=== PATIENT | male | born 1935 | race Two or more races ===

== ENCOUNTER 2020-08-29 22:23 | Inpatient (IN) | payer MEDICARE, OTHER ==
[~2020-08-29] VITALS: Ht 167.6 cm; Wt 48.5 kg
[2020-08-29 22:30] VITALS: BP 123/82
[2020-08-29] MEDS ORDERED: Enoxaparin 100mg Inj SUBQ ONE (22:30)
[2020-08-29] MEDS ORDERED: Azithromycin 500 MG in NS 275 ML IVPB ONE (22:30)
[2020-08-29] MEDS ORDERED: cefTRIAXone 1 GM in NS 55 ML IV ONE (22:30)
[2020-08-29] MEDS ORDERED: dexAMETHasone 10mg/ml Inj IV ONE (22:30)
--- NOTE | 2020-08-29 22:30 | NUR ---
ED Nurse Note: Patient brought into ED by RA Troy from [facility] c/o Shortness of Breathe, per EMS patient was satting at 75% on room air prior to arrival. at arrival patient currently satting at 90% on 15 liters non rebreather, patient is hot to touch, rectal temp of 102.3, patient presents with no skin break down however presents with redness on sacral area. patient was cleaned and placed on monitor. IV started on right ac 18 gauge, will continue to monitor
--- NOTE | 2020-08-29 22:35 | Emergency Room Report ---
History of Present Illness General Chief Complaint: Dyspnea/Respdistress Source: Medical Record, EMS Present Illness HPI This is an 85-year-old male with a history of dementia and CVA. He is a DNR residing in a correction. He presents with chief complaint respiratory distress. He was recently discharged from [facility] for Covid pneumonia. He tested positive on August 21. His respiratory status worsened tonight. Oxygenation was low and he was placed on a nonrebreather. EMS said that nursing staff was bagging him. Unable to get any other history from this patient because of his condition. 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 Patient History Past Medical History: see triage record, old chart reviewed, HTN, COPD, CVA/TIA Past Surgical History: other Pertinent Family History: none Social History: Denies: smoking Immunizations: other Reviewed Nursing Documentation: PMH: Agreed; PSxH: Agreed Nursing Documentation-PMH Past Medical History: No History, Except For Hx Cardiac Problems: Yes - HYPOTHYROIDISM, HYPERLIPIDEMIA Hx Hypertension: Yes Hx COPD: Yes Hx Diabetes: Yes Hx Gastrointestinal Problems: Yes - BPH History Of Psychiatric Problem: Yes - DEMENTIA Hx Neurological Problems: Yes - GENERALIZED WEAKNESS Hx Cerebrovascular Accident: Yes Review of Systems Constitutional: Reports: malaise, weakness Eye: Denies: eye pain, blurred vision ENT: Denies: ear pain, nose congestion, throat swelling Respiratory: Reports: shortness of breath Cardiovascular: Denies: chest pain, palpitations Gastrointestinal: Denies: abdominal pain, diarrhea, nausea, vomiting Musculoskeletal: Denies: back pain, joint pain Skin: Denies: rash Neurological: Denies: headache, numbness Endocrine: Denies: increased thirst, increased urine Hematologic/Lymphatic: Denies: easy bruising All Other Systems: negative except mentioned in HPI Physical Exam Vital Signs Date Time Temp Pulse Resp B/P (MAP) Pulse Ox O2 Delivery O2 Flow Rate FiO2 08/29/20 22:19 99.9 96 24 152/86 (108) 92 Non-Rebreather 15.0 Vitals with hypoxia and fever Sp02 EP Interpretation: reviewed, abnormal General Appearance: alert, severe distress, Chronically Ill, Stupor Head: normocephalic, atraumatic Eyes: bilateral eye PERRL, bilateral eye EOMI ENT: dry mucus membranes Neck: full range of motion, supple, no meningismus Respiratory: chest non-tender, respiratory distress, decreased breath sounds, crackles Cardiovascular #1: no murmur, tachycardia Gastrointestinal: normal bowel sounds, non tender, no mass, no organomegaly, no bruit, non-distended Musculoskeletal: normal range of motion Neurologic: grossly normal Psychiatric: other Skin: normal inspection Lymphatic: normal inspection Procedures Critical Care Time Critical Care Time Critical care is mandated in this patient who presented with acute respiratory failure secondary to Covid pneumonia. Patient require my urgent intervention to attenuate the risks of metabolic collapse which may lead to cardiovascular c ollapse and . Critical care time is 35 minutes excluding any reportable procedure. Critical care time included evaluation, multiple reevaluation, looking at old charts, interpreting laboratory and diagnostic data, discussing case with patient and family and consultants, and charting. Medical Decision Making Diagnostic Impression: Primary Impression: Sepsis Qualified Codes: A41.9 - Sepsis, unspecified organism; R65.20 - Severe sepsis without septic shock; J96.01 - Acute respiratory failure with hypoxia Additional Impressions: Pneumonia due to COVID-19 virus Respiratory failure with hypoxia Qualified Codes: J96.01 - Acute respiratory failure with hypoxia Acute metabolic encephalopathy UTI (urinary tract infection) Qualified Codes: N30.00 - Acute cystitis without hematuria ACS (acute coronary syndrome) ARF (acute renal failure) Qualified Codes: N17.9 - Acute kidney failure, unspecified ER Course This patient presents with sepsis secondary to Covid pneumonia and respiratory failure. Is also showed evidence of multiorgan failure with acute renal failure, respiratory failure, ACS. Prognosis very poor. Patient has a POLST that showed DNR/DNI. Oxygenation on percent on nonrebreather. I discussed the case with Dr. Brooks for admission. EKG Diagnostic Results Troponin ordered: Yes Rate: tachycardiac Rhythm: NSR ST Segments: other - NSST changes Rhythm Strip Diag. Results EP Interpretation: yes Rate: 120 Rhythm: NSR, no PVC's, no ectopy Chest X-Ray Diagnostic Results Chest X-Ray Diagnostic Results : Chest X-Ray Ordered: Yes # of Views/Limited/Complete: 1 View Indication: Shortness of Breath EP Interpretation: Yes Interpretation: no effusion, no pneumothorax, other - b/l infiltrates Impression: Other - b/l infiltrates R>L Electronically Signed by: Tom Muñoz MD Last Vital Signs Date Time Temp Pulse Resp B/P (MAP) Pulse Ox O2 Delivery O2 Flow Rate FiO2 08/29/20 22:19 99.9 96 24 152/86 (108) 92 Non-Rebreather 15.0 Status: improved Disposition: ADMITTED INPATIENT Condition: Critical Tom Muñoz MD Aug 29, 2020 22:35
[2020-08-29] MEDS ORDERED: Acetaminophen 650 MG SUPP RECTAL ONE ×2 (22:37→22:45)
[2020-08-29] MEDS ORDERED: FAMOTIDINE20 MG ORAL (22:39)
[2020-08-29] MEDS ORDERED: ACETAMINOP160 MG/54 ORAL (22:39)
[2020-08-29] MEDS ORDERED: ACETAMINOP160 MG/54 RECTAL (22:39)
[2020-08-29] MEDS ORDERED: DOCUSATE SODIU100 MG ORAL (22:39)
[2020-08-29] MEDS ORDERED: NORCO 5-325 TA1 EAC1 ORAL (22:39)
[2020-08-29] MEDS ORDERED: DEXAMETHASONE4 MG PO (22:39)
[2020-08-29] MEDS ORDERED: CATAPRES0.1 MG ORAL (22:39)
[2020-08-29] MEDS ORDERED: LOVENOX10 M1 SUBQ (22:39)
[2020-08-29] MEDS ORDERED: ROBITUSSIN COU118 M1 ORAL (22:39)
[2020-08-29] MEDS ORDERED: ZOFRAN4 M3 ORAL (22:39)
[2020-08-29] MEDS ORDERED: DIPHENHYDRAMINE25 M1 ORAL (22:39)
[2020-08-29] MEDS ORDERED: ATIVAN0.5 MG ORAL (22:39)
[2020-08-29] MEDS ORDERED: MYLANTA TONIGH355 ML PO (22:39)
[2020-08-29 23:14] LABS: HEMATOCRIT 38.5 % (42.0-52.0); HEMOGLOBIN 13.5 G/DL (14.2-18.0); MEAN CORPUSCULAR VOLUME 90 FL (80-99); PLATELET COUNT 156 K/UL (150-450); RED BLOOD COUNT 4.26 M/UL (4.70-6.10); RED CELL DISTRIBUTION WIDTH 14.5 % (11.6-14.8); WHITE BLOOD COUNT 18.9 K/UL (4.8-10.8)
[2020-08-29 23:20] LABS: APPEARANCE,URINE CLOUDY; BILIRUBIN, URINE 1+ (NEGATIVE); GLUCOSE, URINE (UA) 2+ (NEGATIVE); KETONES,URINE 1+ (NEGATIVE); LEUKOCYTE ESTERASE ,URINE 2+ (NEGATIVE); NITRITE,URINE NEGATIVE (NEGATIVE); PH,URINE 5 (4.5-8.0); PROTEIN,URINE 4+ (NEGATIVE); UROBILINOGEN,URINE 1 MG/DL (0.0-1.0)
[2020-08-29 23:25] LABS: ANION GAP 12 mmol/L (5-15); BLOOD UREA NITROGEN 54 mg/dL (7-18); CALCIUM 7.8 MG/DL (8.5-10.1); CARBON DIOXIDE 20 MMOL/L (21-32); CHLORIDE 108 MMOL/L (98-107); POTASSIUM 4.5 MMOL/L (3.5-5.1); SODIUM 140 MMOL/L (136-145)
[2020-08-29 23:43] LABS: ALANINE AMINOTRANSFERASE 28 U/L (12-78); ALBUMIN 1.8 G/DL (3.4-5.0); ALBUMIN/GLOBULIN RATIO 0.4 (1.0-2.7); ALKALINE PHOSPHATASE 123 U/L (46-116); ASPARTATE AMINO TRANSFERASE 27 U/L (15-37); BILIRUBIN,TOTAL 0.4 MG/DL (0.2-1.0); CKMB 1.3 NG/ML (0.0-3.6); CREATINE KINASE 144 U/L (26-308); FERRITIN > 2000 NG/ML (8-388); LACTATE DEHYDROGENASE 480 U/L (81-234)
[2020-08-29 23:46] LABS: INR 1.2 (0.9-1.1); PARTIAL THROMBOPLASTIN TIME 28 SEC (23-33)
[2020-08-29 23:58] LABS: COLOR,URINE YELLOW
--- NOTE | 2020-08-30 00:05 | NUR ---
ED Nurse Note: informed ERMD of patient's troponin, states to keep it at med surg due to DNR/DNI status
[2020-08-30 01:00] VITALS: BP 127/83
--- NOTE | 2020-08-30 01:25 | Emergency Room Report ---
Sepsis Event Note Evaluation Current Stage of Sepsis: Severe Sepsis Possible Source: Pulmonary Focused Exam Allergies: Coded Allergies: No Known Allergies (Unverified , 08/29/20) Date Exam Occurred: Aug 30, 2020 Time Exam Occurred: 01:25 Laboratory Studies Laboratory Tests Test 08/29/20 22:30 08/30/20 00:15 White Blood Count 18.9 K/UL (4.8-10.8) H Red Blood Count 4.26 M/UL (4.70-6.10) L Hemoglobin 13.5 G/DL (14.2-18.0) L Hematocrit 38.5 % (42.0-52.0) L Mean Corpuscular Volume 90 FL (80-99) Mean Corpuscular Hemoglobin 31.7 PG (27.0-31.0) H Mean Corpuscular Hemoglobin Concent 35.1 G/DL (32.0-36.0) Red Cell Distribution Width 14.5 % (11.6-14.8) Platelet Count 156 K/UL (150-450) Mean Platelet Volume 7.4 FL (6.5-10.1) Neutrophils (%) (Auto) % (45.0-75.0) Lymphocytes (%) (Auto) % (20.0-45.0) Monocytes (%) (Auto) % (1.0-10.0) Eosinophils (%) (Auto) % (0.0-3.0) Basophils (%) (Auto) % (0.0-2.0) Differential Total Cells Counted 100 Neutrophils % (Manual) 86 % (45-75) H Lymphocytes % (Manual) 11 % (20-45) L Monocytes % (Manual) 3 % (1-10) Eosinophils % (Manual) 0 % (0-3) Basophils % (Manual) 0 % (0-2) Band Neutrophils 0 % (0-8) Platelet Estimate Adequate Platelet Morphology Normal Prothrombin Time 12.6 SEC (9.30-11.50) H Prothromb Time International Ratio 1.2 (0.9-1.1) H Activated Partial Thromboplast Time 28 SEC (23-33) D-Dimer > 35.20 mg/L FEU Urine Color Yellow Urine Appearance Cloudy Urine pH 5 (4.5-8.0) Urine Specific [place] 1.020 (1.005-1.035) Urine Protein 4+ (NEGATIVE) H Urine Glucose (UA) 2+ (NEGATIVE) H Urine Ketones 1+ (NEGATIVE) H Urine Blood 2+ (NEGATIVE) H Urine Nitrite Negative (NEGATIVE) Urine Bilirubin 1+ (NEGATIVE) H Urine Ictotest Negative (NEGATIVE) Urine Urobilinogen 1 MG/DL (0.0-1.0) H Urine Leukocyte Esterase 2+ (NEGATIVE) H Urine RBC 10-15 /HPF (0 - 0) H Urine WBC 15-20 /HPF (0 - 0) H Urine Squamous Epithelial Cells Few /LPF (NONE/OCC) Urine Bacteria Moderate /HPF (NONE) H Urine Yeast Many /HPF (NONE) H Sodium Level 140 MMOL/L (136-145) Potassium Level 4.5 MMOL/L (3.5-5.1) Chloride Level 108 MMOL/L (98-107) H Carbon Dioxide Level 20 MMOL/L (21-32) L Anion Gap 12 mmol/L (5-15) Blood Urea Nitrogen 54 mg/dL (7-18) H Creatinine 2.0 MG/DL (0.55-1.30) H Estimat Glomerular Filtration Rate 32.0 mL/min (>60) Glucose Level 400 MG/DL (74-106) H Lactic Acid Level 2.50 mmol/L (0.4-2.0) H 2.30 mmol/L (0.66-2.22) H Calcium Level 7.8 MG/DL (8.5-10.1) L Ferritin > 2000 NG/ML (8-388) H Total Bilirubin 0.4 MG/DL (0.2-1.0) Aspartate Amino Transf (AST/SGOT) 27 U/L (15-37) Alanine Aminotransferase (ALT/SGPT) 28 U/L (12-78) Alkaline Phosphatase 123 U/L (46-116) H Lactate Dehydrogenase 480 U/L (81-234) H Total Creatine Kinase 144 U/L (26-308) Creatine Kinase MB 1.3 NG/ML (0.0-3.6) Creatine Kinase MB Relative Index 0.9 Troponin I 0.148 ng/mL (0.000-0.056) C-Reactive Protein, Quantitative 45.8 mg/dL (0.00-0.90) H Pro-B-Type Natriuretic Peptide 4581 pg/mL (0-125) H Total Protein 6.7 G/DL (6.4-8.2) Albumin 1.8 G/DL (3.4-5.0) L Globulin 4.9 g/dL Albumin/Globulin Ratio 0.4 (1.0-2.7) L Lipase 85 U/L (73-393) Vital Signs Last 24 Hour Vital Signs Date Time Temp Pulse Resp B/P (MAP) Pulse Ox O2 Delivery O2 Flow Rate FiO2 08/29/20 23:15 99.6 08/29/20 22:30 102.3 108 24 123/82 92 Non-Rebreather 15.0 08/29/20 22:30 98 22 Non-Rebreather 15.0 08/29/20 22:19 99.9 96 24 152/86 (108) 92 Non-Rebreather 15.0 Respiratory Exam: Rhonchi Cardiovascular Exam: RRR Capillary Refill: Less Than 2 Seconds Peripheral Pulse: Strong Pulse Location: Radial Skin Exam: Normal Turgor Tom Muñoz MD Aug 30, 2020 01:25
[2020-08-30] MEDS ORDERED: Acetaminophen 650 MG SUPP RECTAL PRN (01:30)
--- NOTE | 2020-08-30 01:45 | NUR ---
TRANSFER TO FLOOR: Patient transferred to med surg 417-2 as ordered, per chadd marin Report given to scarlett coker. patient stable for transport. transferred to er via gurney with martha and rn. belongings and admission packet sent with patient.
--- NOTE | 2020-08-30 02:00 | NUR ---
NURSE NOTES: Admitted patient awake, on O2 non-rebreather mask @15 L. Patient DNR/DNI.
[2020-08-30 03:52] VITALS: BP 98/59
[2020-08-30] MEDS ORDERED: Acetaminophen Soln 160mg/5ml ORAL PRN (05:15)
[2020-08-30] MEDS ORDERED: HYDROcodone/Acetamin 5/325 tab ORAL PRN (05:15)
--- NOTE | 2020-08-30 07:17 | NUR ---
HAND-OFF: Report given to Berenice Nieto RN.
--- NOTE | 2020-08-30 07:44 | NUR ---
NURSE NOTES: Received report from Suzanne SAHNI. Patient is drowsy, arousable to light shaking, non-verbal. On NRB mask at 15L, RR even. DNR/DNI. Repositioned for comfort, fall precautions maintained. Side rails upx3, bed low and locked, call light within reach, bed alarm armed.
[2020-08-30 08:00] VITALS: BP 108/66
[2020-08-30] MEDS: Docusate 100mg cap ORAL SCH ×3 (08:25→18:00)
[2020-08-30] MEDS ORDERED: LORazepam 0.5mg tab ORAL SCH (09:00)
[2020-08-30] MEDS ORDERED: LORazepam 0.5mg tab ORAL PRN (09:00)
--- NOTE | 2020-08-30 09:27 | NUR ---
NURSE NOTES: PA for Amaya Cheng here to see patient. PA provided with update on patient's overall and oxygenation status/needs. No new orders received.
--- NOTE | 2020-08-30 10:30 | NUR ---
NURSES NOTE: Received report from KAITLYN Ng. Pt in bed, disoriented, does not respond to simple questions. Breathing is labored on Non-rebreather mask at 15L/min. HR varies ranging between 95-115. All other VS within normal limits. BS was critically high previous shift -570. BS checked at 1999- . Dr Alicea called and made aware. New order for Insulin resistant scale to be placed and moderate scale to be d/c. Order carried out. Pt received 14 units Novolog on new insulin scale for 2100 BS check. BS 414 at subsequent BS checks. All due medications will be administered. Bed at lowest level. Pt will continue to be monitored. Addendum: 08/31/20 at 0127 by Vania Cruz RN Note entered from AM instead of PM in error.
--- NOTE | 2020-08-30 10:54 | Diagnostic Imaging Report ---
Procedure: XRAY Chest 1v Reason for study: Reason For Exam: SOB Comparison films: None. FINDINGS: A single one view chest is obtained. Vascularity is normal. There are bilateral infiltrates in the lung bases. Ill-defined lucencies noted in the upper mediastinum. Consider possible pneumomediastinum. There is no pneumothorax. CP angles are sharp. The bony thorax appear unremarkable. IMPRESSION: Bibasilar infiltrates. Ill-defined lucencies in the upper mediastinum. Question possible pneumomediastinum. Findings called to patient's nurse. 06/30/2020 at 10:45 AM
--- NOTE | 2020-08-30 11:23 | NUR ---
NURSE NOTES: Restraints applied emergently due to patient attempting to get OOB x2. Patient was found with legs over side rails, yelling "agua!", removing his NRB mask and trying to climb out of bed. Put patient back in bed and attempted to verbally calm patient, patient still attempted to get OOB and remove his NRB mask. Restraints applied to bilateral wrists (soft restraints) for safety by myself and charge nurse. Dr. Brooks notified, order received and entered.
--- NOTE | 2020-08-30 11:30 | NUR ---
NURSE NOTES: Per Dr. Brooks, ok to place patient on [facility] soft diet. Attempted to give patient a sip of water per order from Dr. Brooks and patient started couching, oxygen saturation dropped to 85%. Called and notified , awaiting callback. Addendum: 08/30/20 at 1153 by Berenice Nieto RN Edit: Patient started coughing
[2020-08-30 12:00] VITALS: BP 116/86
--- NOTE | 2020-08-30 12:11 | NUR ---
NURSE NOTES: No callback received from Dr. Gallegos. Amaya Duarte for Dr. Brooks notified and aware that patient unable to tolerate sips of water and desaturated to 85%, PA stated he will notify Dr. Brooks.
--- NOTE | 2020-08-30 12:23 | NUR ---
RD ASSESSMENT & RECOMMENDATIONS SEE CARE ACTIVITY FOR COMPLETE ASSESSMENT DAILY ESTIMATED NEEDS: Needs based on DM/ 48.5kg 25-30 kcals/kg 6395-7065 total kcals 1-1.5 g protein/kg 49-72 g total protein 25-30 mL/kg 2527-8591 total fluid mLs NUTRITION DIAGNOSIS: Altered nutrition related lab values R/T sepsis, h/o DM as evidenced by BG 400 upon adm, elev LA, elev wbc (18.9) CURRENT DIET:NPO PO DIET RECOMMENDATIONS: CCHO LOW, texture per CHIEF EXECUTIVE OFFICER ENTERAL NUTRITION RECOMMENDATIONS: CONSULT RD FOR TF IF TF INDICATED AND PART OF POC ADDITIONAL RECOMMENDATIONS: * Per SNF: EN=137.4lbs on 08/26/20, daily calibrated bedscale wts * CHIEF EXECUTIVE OFFICER evaluation for appropriate diet texture and for safety of oral diet * Rec accuchecks for close BG monitoring: h/o DM -> NISS w/ diet * Consider added D5 while NPO to prevent hypoglycemia * A1C for eval of glycemic control
[2020-08-30] MEDS ORDERED: Varibar Pudding 230ml MC PRN (14:15)
[2020-08-30] MEDS ORDERED: Varibar Thin Liquid powder 148gm MC PRN (14:15)
[2020-08-30] MEDS ORDERED: Varibar Nectar 240ml MC PRN (14:15)
[2020-08-30] MEDS ORDERED: Varibar Honey 250ml MC PRN (14:15)
--- NOTE | 2020-08-30 15:00 | NUR ---
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 99.6 HR 105 RR 24 B/P 127/83 NRM FIO2 100% WBC 18.9 BUN 54 CR 2.0 LACTID ACID 2.50 TROP 0.148 URINE + PROTEIN,GLUCOSE,KETONES,BLOOD,WBC,RBC,YEAST CXR=Bibasilar infiltrates. IS: ZITHROMAX IV DECADRON IV ROCEPHIN IV IV BOLUS NS X 500ML LOVENOX SUBC ADMITTED TO MED/SURG @0145 MED/SURG STATUS DCP RETURN TO SNF
[2020-08-30 16:00] VITALS: BP 130/70
--- NOTE | 2020-08-30 16:00 | History and Physical Report ---
DATE OF ADMISSION: 08/30/2020 HISTORY OF PRESENT ILLNESS: This is an 85-year-old male with a history of CVA and dementia. He is DNR, currently in a custodial. He was discharged from an outside hospital recently with a diagnosis of COVID-19 pneumonia. He tested positive on 08/21/2020. He worsened at the custodial and he was hypoxic. He was transferred to [facility]. He was bagged. This morning, he was seen on the medical floor. A nonrebreather mask is at bedside. The patient refused to keep it on. He is screaming that he wants water. PAST MEDICAL HISTORY: Hypertension, COPD, CVA, TIA, DNR/DNI, recent COVID pneumonia, hypothyroidism, hyperlipidemia, dementia, BPH. LIST OF HOME MEDICATIONS: Clonidine, Lovenox, Pepcid, [place], Ativan, Zofran. He has received overnight azithromycin, ceftriaxone and dexamethasone. REVIEW OF SYSTEMS: Not reliable. PHYSICAL EXAMINATION: GENERAL: An 85-year-old male. HEENT: Unremarkable. LUNGS: Clear breath sounds bilaterally. ABDOMEN: Soft. EXTREMITIES: There is no edema. VITAL SIGNS: Blood pressure 116/80, heart rate 84, respirations 18, O2 sat 92% on nonrebreather mask. LABORATORY DATA: White count 18,000, hemoglobin of 13, platelet count is normal. Creatinine of 2, BUN 54, glucose 400. Lactic acid 2.5, now 2.3. Ferritin more than 2000. Troponin 0.14. Coags, D-dimer 135. Urinalysis shows a few pus cells. IMPRESSION: 1. Leukocytosis. 2. UTI. 3. Renal failure/insufficiency. 4. Hyperglycemia. 5. Lactic acidemia. 6. Elevated ferritin. 7. Troponin leak. 8. Elevated D-dimer. 9. Recent COVID pneumonia. 10. DNR/DNI. 11. COPD. 12. Hypertension. DISCUSSION: Admit to the hospital. The patient has multiple comorbidities. He is noted to be DNR/DNI. I will contact family and continue to provide comfort care. I will institute broad-spectrum antibiotics. Consulted Cardiology and Nephrology as well as ID. He may be a candidate for palliative care. I will follow. Deshawn Brooks M.D. DR: DAYA JOB#: [id number] CC: TREVER
[2020-08-30] MEDS ORDERED: NovoLOG Insulin Flexpen SUBQ SCH ×2 (16:30→17:45)
--- NOTE | 2020-08-30 16:49 | NUR ---
NURSE NOTES: Called and notified Dr. Brooks of critical high blood glucose of 570, insulin 12 units subcut given per sliding scale, per MD Dr. Tompkins was contacted and will see the patient. Also notified patient is agitated with HR in 120s, unable to take PO. Received order for Ativan IV PRN. Patient to be re-swabbed for COVID. All orders read back and entered.
[2020-08-30] MEDS: LORazepam Inj 2mg/ml 1ml IV PRN (17:15)
[2020-08-30] MEDS: Enoxaparin 40mg Inj SUBQ SCH (17:16)
--- NOTE | 2020-08-30 17:44 | NUR ---
NURSE NOTES: Called and notified Dr. Tompkins that blood glucose is 558 s/p 12 units subcut. MD ordered to give 20 units of insulin x1 and increase IV fluids to 125mL/hr. Will carry out order.
[2020-08-30] MEDS ORDERED: Enoxaparin 60mg Inj SUBQ SCH (18:00)
--- NOTE | 2020-08-30 18:26 | NUR ---
NURSE NOTES: Patient is less agitated, appears more comfortable s/p Ativan IV. HR 115-120, saturation 92-96% on NRB. 20 units insulin subcut given per order.
--- NOTE | 2020-08-30 18:42 | NUR ---
NURSE NOTES: Called and notified Dr. Tompkins that blood glucose is 510 s/p 20 units of insulin. MD is aware and ordered to re-check the blood sugar in one hour. Will endorse to video game producer nurse.
--- NOTE | 2020-08-30 19:20 | NUR ---
NURSE HAND-OFF: Important Events on Shift: BS critically high, multiple desaturations on NRB, placed on restraints, DNR/DNI status. Patient Status: stable Diet: NPO Pending Orders: BS check x1 at 1940, endorsed to Vania SAHNI Pending Results/Labs: N/A Pending MD notification: N/A Latest Vital Signs: Temperature 97.0 , Pulse 122 , B/P 130 /70 , Respiratory Rate 24 , O2 SAT 89 , Non-Rebreather, O2 Flow Rate 15.0 . Vital Sign Comment: VS guarded Latest Day Fall Score: 50 Fall Risk: High Risk Safety Measures: Call light Within Reach, Bed Alarm Zone 2, Side Rails Side Rails x3, Bed position Low and Locked. Fall Precautions: Patient Fall Education Report given to Vania SAHNI.
[2020-08-30 20:00] VITALS: BP 122/78
[2020-08-30] MEDS ORDERED: cefTRIAXone 1 GM in D5W 55 ML IVPB SCH (21:00)
[2020-08-30] MEDS: NovoLOG Insulin Flexpen SUBQ SCH (21:01)
--- NOTE | 2020-08-30 22:30 | NUR ---
NURSES NOTE: Received report from KAITLYN Ng. Pt in bed, disoriented, does not respond to simple questions. Breathing is labored on Non-rebreather mask at 15L/min. HR varies ranging between 95-115. All other VS within normal limits. BS was critically high previous shift -570. BS checked at 1999- . Dr Alicea called and made aware. New order for Insulin resistant scale to be placed and moderate scale to be d/c. Order carried out. Pt received 14 units Novolog on new insulin scale for 2100 BS check. BS 414 at subsequent BS checks. All due medications will be administered. Bed at lowest level. Pt will continue to be monitored.
[2020-08-31] VITALS: BP 114/68
[2020-08-31 04:00] VITALS: BP 134/77
[2020-08-31] MEDS: NovoLOG Insulin Flexpen SUBQ SCH ×6 (05:56→20:45)
--- NOTE | 2020-08-31 07:34 | NUR ---
NURSE NOTES: Report received from KAITLYN Arenas. Pt awake in bed, alert and oriented x 1, no SOB, no s/sx of discomfort at this time, bed in lowest position with breaks engaged and alarm on, on droplet and contact isolation for COVID, soft wrist restraints on bilateral arm to prevent pulling of IV and oxygen mask, on non rebreather mask at 15 L/min, IV line present on right AC, will continue to monitor and proceed with plan of care, call light within reach
--- NOTE | 2020-08-31 07:35 | NUR ---
NURSE HAND-OFF: Important Events on Shift:[BS highly elevated. Dr Cantor aware. New orders processed NOC shift to insulin resistant sliding scale and additional order processed early this AM for more frequent insulin doses. ] Patient Status: [Unstable] Diet: [NPO] Pending Orders: [NONE] Pending Results/Labs:[BMP pulled late; result pending] Pending MD notification:[none] Latest Vital Signs: Temperature 99.0 , Pulse 104 , B/P 134 /77 , Respiratory Rate 21 , O2 SAT 94 , Non-Rebreather, O2 Flow Rate 15.0 . Vital Sign Comment: [Sats low without non rebreather. HR varies between 95-110] Latest Day Fall Score: 50 Fall Risk: High Risk Safety Measures: Call light Within Reach, Bed Alarm Zone 2, Side Rails Side Rails x3, Bed position Low and Locked. Fall Precautions: Patient Fall Education Report given to [KAITLYN Melo].
[2020-08-31 08:00] VITALS: BP 139/86
--- NOTE | 2020-08-31 08:19 | NUR ---
Speech Pathology Note (Bedside Dysphagia Evaluation) Code Status: DNR/DNI, No alternative feeding Brief Note: Mr. Hill is an 85 year old detention resident male. He hospitalized at [facility] for COVID 19 pneumonia from 08/19/2020 through 08/23/2020. He was subsequently discharged to [facility] on 08/23/2020 with continuation of anti-inflammatory regimen. Unfortunately, ge declined in his status and subsequently taken to ED at [facility] on 08/29/2020. His Vital signs on 08/29/2020 at 22:19 was temp (99.9), Pulse (96), BP (152/86: MAP 108), SPO2 92% on 15liter via NRM. The labs were remarkable for elevation of all inflammatory markers including LDH 480, Ferritin over 2.000, CRP, and DDimer 35.2. 08/19/2020( 2.7). His leukocytosis remained and currently at 18.9k. His organ function has declined from baseline BUN/Creatine 54/2.0, albumin 1.8 from 2.7. CXR 08/29/2020: Reviewed Vital Signs from 08/30/2020@16:00~08/31/2020@04:00 Temp MAX: 99.0 MIN: 97.0 Pulse MAX: 122 MIN: 104 BP: MAX: 134/77 MIN: 114/68 SPO2: MIN: 89, MAX 95 (15liter via NRM) Findings: Mr. Hill is awake,opening his eyes. He did not track. Bedside monitor indicates tachy cardia at 126, SPO2 87% with maximizing FIO2 100%. Visible oral cavity is dried with concretion on hard palate. Intermittent congested cough, crackle without auscultation was noted. I did no give any PO trial at this time. Interpretation: 1. Dysphagia with aspiration 2. Worsening pulmonary status due to COVID s.p treatment 3. DNR/DNI Plan/Recommendation: 1. NPO 2. Comfort/support care I will sign off from service at this time. Umair Godinez
[2020-08-31] MEDS: Docusate 100mg cap ORAL SCH ×5 (08:57→17:01)
[2020-08-31] MEDS: Levemir Flexpen SUBQ SCH ×2 (09:00→17:04)
--- NOTE | 2020-08-31 09:21 | Pulmonology Progress Note ---
Subjective ROS Limited/Unobtainable: Yes Interval Events: elevated blood glucose Constitutional: Reports: no symptoms Cardiovascular: Reports: no symptoms Gastrointestinal/Abdominal: Reports: no symptoms Genitourinary: Reports: no symptoms Allergies: Coded Allergies: No Known Allergies (Unverified , 08/29/20) Objective Last 24 Hour Vital Signs Date Time Temp Pulse Resp B/P (MAP) Pulse Ox O2 Delivery O2 Flow Rate FiO2 08/31/20 04:00 99.0 104 21 134/77 (96) 94 08/31/20 00:00 99.0 109 22 114/68 (83) 95 08/30/20 21:00 Non-Rebreather 15.0 08/30/20 20:00 99.0 122 22 122/78 (93) 95 08/30/20 17:15 122 24 130/70 89 08/30/20 16:00 97.0 122 24 130/70 (90) 89 08/30/20 12:00 104 24 116/86 (96) 92 Intake and Output 08/30/20 08/31/20 19:00 07:00 Intake Total 275 ml Balance 275 ml Intake Oral 50 ml IV Total 225 ml # Voids 1 2 Objective 08/31/2020 DNR/DNI noted; 93% on 15 lpm NRB General Appearance: no acute distress, cachetic HEENT: normocephalic, atraumatic Respiratory: chest wall non-tender, lungs clear Cardiovascular: normal peripheral pulses, regular rhythm, tachycardia Abdomen: soft, non tender Extremities: no cyanosis, no clubbing Neurologic: alert, responsive Microbiology Date/Time Source Procedure Growth Status 08/29/20 22:45 Blood Blood Culture - Preliminary NO GROWTH AFTER 24 HOURS Resulted 08/29/20 22:30 Blood Blood Culture - Preliminary NO GROWTH AFTER 24 HOURS Resulted Laboratory Tests 08/30/20 16:15: POC Whole Blood Glucose 564*H 08/30/20 16:17: POC Whole Blood Glucose 521*H 08/30/20 16:39: POC Whole Blood Glucose [Pending] 08/30/20 17:23: POC Whole Blood Glucose [Pending] 08/30/20 18:35: POC Whole Blood Glucose [Pending] 08/30/20 20:13: POC Whole Blood Glucose 519*H 08/30/20 23:01: POC Whole Blood Glucose 414H 08/31/20 00:33: POC Whole Blood Glucose 416H 08/31/20 05:52: POC Whole Blood Glucose [Pending] 08/31/20 08:57: POC Whole Blood Glucose 372H Current Medications Medications (Trade) Dose Ordered Sig/Tim Route PRN Reason Start Time Stop Time Status Last Admin Dose Admin Acetaminophen (Tylenol) 325 mg Q6H PRN ORAL MILD/TEMP 08/30/20 05:30 09/29/20 05:29 Acetaminophen/ Hydrocodone Bitart ([place] 5/325) 1 tab Q4H PRN ORAL FOR PAIN 08/30/20 05:15 09/06/20 05:14 Barium Sulfate (Varibar Honey) 250 ml NOW PRN MC RAD 08/30/20 14:15 09/02/20 14:14 Barium Sulfate (Varibar [place]) 240 ml NOW PRN MC RAD 08/30/20 14:15 09/02/20 14:14 Barium Sulfate (Varibar Pudding) 230 ml NOW PRN MC RAD 08/30/20 14:15 09/02/20 14:14 Barium Sulfate (Varibar Thin Liquid powder) 148 gm NOW PRN MC RAD 08/30/20 14:15 09/02/20 14:14 Ceftriaxone Sodium 1 gm/ Dextrose 55 ml @ 110 mls/hr Q24H IVPB 08/30/20 21:00 09/06/20 20:59 08/30/20 20:57 Clonidine HCl (Catapres Tab) 0.1 mg Q6H PRN ORAL For High Blood Pressure 08/30/20 06:00 11/28/20 05:59 Dexamethasone Sodium Phosphate (Decadron 4mg/ml vial) 6 mg Q24H IVP 08/30/20 21:00 09/07/20 21:01 08/30/20 20:57 Dextrose (Dextrose 50%) 25 ml Q30M PRN IV Hypoglycemia 08/31/20 07:00 11/29/20 06:59 Dextrose (Dextrose 50%) 50 ml Q30M PRN IV Hypoglycemia 08/31/20 07:00 11/29/20 06:59 Diphenhydramine HCl (Benadryl) 25 mg Q4H PRN ORAL Itching 08/30/20 05:15 09/29/20 05:14 Docusate Sodium (Colace) 100 mg THREE TIMES A DAY ORAL 08/30/20 09:00 09/29/20 08:59 08/31/20 08:57 Enoxaparin Sodium (Lovenox) 40 mg DAILY@1800 SUBQ 08/30/20 18:00 11/28/20 17:59 08/30/20 17:16 Famotidine (Pepcid) 20 mg DAILY ORAL 08/30/20 09:00 11/28/20 08:59 08/31/20 08:57 Insulin Aspart (NovoLOG) EVERY 4 HOURS SUBQ 08/31/20 07:00 11/28/20 20:59 08/31/20 09:01 Insulin Detemir (Levemir) 20 units BID SUBQ 08/31/20 09:00 11/29/20 08:59 08/31/20 09:00 Lorazepam (Ativan 2mg/ml 1ml) 0.5 mg Q4H PRN IV AGITATION 08/30/20 17:00 09/06/20 16:59 08/30/20 17:15 Lorazepam (Ativan) 0.5 mg THREE TIMES A DAY PRN ORAL Agitation 08/30/20 09:00 09/06/20 08:59 Ondansetron HCl (Zofran) 4 mg Q6H PRN ORAL Nausea & Vomiting 08/30/20 05:15 09/29/20 05:14 Sodium Chloride 1,000 ml @ 125 mls/hr Q8H IV 08/30/20 14:00 09/29/20 13:59 08/31/20 08:58 Assessment/Plan Assessment/Plan 1. Leukocytosis. On broad spectrum abx; discussed with ID; high WBC may be decadron related 2. UTI. On Abx 3. Renal failure/insufficiency. 4. Hyperglycemia. On additional insulin. Endocrine consulted. 5. Lactic acidemia. 6. Elevated ferritin. 7. Troponin leak. 8. Elevated D-dimer. 9. Recent COVID pneumonia. 10. DNR/DNI. 11. COPD. 12. Hypertension. 13. Dysphagia with aspiration - NPO per speech therapist recommendation Cardio consult Nephro consult Patient has multiple comorbidities. He is a candidate for palliative care. The care of this patient was discussed with my supervising physician Time spent for this encounter was approximately 31 minutes The patient was seen and examined at bedside and all new and available data was reviewed in the patients chart. I agree with the above findings, impression, and plan. Discussed with daughter (Yamileth) Discussed with insurance Will attempt placement in SNF with hospice (Patient was seen earlier today. Signature timestamp does not reflect patient encounter time) Darian Hull MD Aug 31, 2020 09:21 Deshawn Brooks MD Aug 31, 2020 17:33
[2020-08-31 10:35] LABS: HEMATOCRIT 36.6 % (42.0-52.0); HEMOGLOBIN 13.1 G/DL (14.2-18.0); MEAN CORPUSCULAR VOLUME 89 FL (80-99); PLATELET COUNT 103 K/UL (150-450); RED BLOOD COUNT 4.11 M/UL (4.70-6.10); RED CELL DISTRIBUTION WIDTH 15.2 % (11.6-14.8)
[2020-08-31 12:00] VITALS: BP 119/77
[2020-08-31 12:03] LABS: CALCIUM 7.6 MG/DL (8.5-10.1); CREATININE 2.1 MG/DL (0.55-1.30); POTASSIUM 4.1 MMOL/L (3.5-5.1)
--- NOTE | 2020-08-31 12:16 | Consultation ---
DATE OF CONSULTATION: 08/31/2020 INFECTIOUS DISEASES CONSULTATION CONSULTING PHYSICIAN: Salvador Covington MD. REFERRING PHYSICIAN: Deshawn Brooks MD. REASON FOR CONSULTATION: COVID-19 pneumonia. HISTORY OF PRESENTING ILLNESS: This is a 85-year-old gentleman with history of CVA, dementia, who comes in after testing positive for COVID-19 pneumonia. He was hypoxic and has been transferred to [facility]. An Infectious Diseases consultation has been obtained for antibiotics. PAST MEDICAL HISTORY: 1. History of hypertension. 2. COPD. 3. CVA. 4. COVID-19 pneumonia. 5. Hypothyroidism. 6. Hyperlipidemia. 7. Dementia. 8. Benign prostatic hypertrophy. SOCIAL HISTORY: Unknown. FAMILY HISTORY: Unknown. REVIEW OF SYSTEMS: Unable to obtain currently. MEDICATIONS: As an inpatient, the patient is on insulin, ceftriaxone, dexamethasone, Lovenox, lorazepam, famotidine, docusate, clonidine, Tylenol, Zofran, [place], Benadryl. ALLERGIES: No known drug allergies. PHYSICAL EXAMINATION: VITAL SIGNS: Temperature 97.9, T-max of 99, pulse of 111, respiratory rate of 24, blood pressure 139/86, O2 saturation of 94% on 15 liters of oxygen. Examination deferred due to COVID-19. LABORATORY AND DIAGNOSTIC DATA: White count 26, hemoglobin 13.1, hematocrit 36.6, MCV 89, platelet count of 103. Sodium 140, potassium 4.5, chloride 108, bicarb 20, BUN 54, creatinine 2, glucose of 400, calcium 7.8. Ferritin more than 2000. Total bilirubin 0.4, AST 27, ALT 28, alkaline phosphatase 123. LDH 480. CK 144, CK-MB 1.3. Troponin 0.14. C-reactive protein of 45.8. Beta-natriuretic peptide 4581. Total protein 6.7, albumin 1.8. Lipase of 85. UA is showing 15 to 20 white cells. Blood cultures are negative. Chest x-ray is showing bibasilar infiltrates. ASSESSMENT: This is a 85-year-old gentleman with history of hypertension, benign prostatic hypertrophy, COPD, TIA who comes in and is found to have. 1. COVID-19 pneumonia. He is hypoxic on 15 liters of oxygen with O2 saturation of 94%. 2. Hypertension. 3. Leukocytosis could be secondary to steroids. 4. COPD. 5. CVA. PLAN: 1. Continue Decadron that has been started day #3. 2. Discontinue ceftriaxone. 3. Continue isolation. 4. We will give one dose of ivermectin, benefits outweigh the risks. 5. We will follow up the patient clinically. I would like to thank, Dr. Brooks, for this consultation. Salvador Covington M.D. DR: Rishi JOB#: [id number] CC: Deshawn Brooks M.D.; Fax#: [phone]
[2020-08-31] MEDS: Acetaminophen 650mg/20.3ml ORAL PRN ×2 (12:22→12:56)
--- NOTE | 2020-08-31 12:59 | Consultation ---
History of Present Illness General Date patient seen: Aug 31, 2020 Time patient seen: 12:53 Chief Complaint: Dyspnea/Respdistress Present Illness HPI This is an 85-year-old male with a history of CVA and dementia. He is DNR, currently in a fci. He was discharged from an outside hospital recently with a diagnosis of COVID-19 pneumonia. He tested positive on 08/21/2020. He worsened at the fci and he was hypoxic. He was transferred to [facility]. Allergies: Coded Allergies: No Known Allergies (Unverified , 08/29/20) Medication History Scheduled Calcium Carb/Mag Hydrox/Simeth (Mylanta Tonight 800-270-80/10), 30 ML PO PRN, (Reported) Clonidine Hcl* (Catapres*), 0.1 MG ORAL EVERY 6 HOURS, (Reported) Docusate Sodium* (Docusate Sodium*), 100 MG ORAL THREE TIMES A DAY, (Reported) Enoxaparin* (Lovenox*), 60 MG SUBQ DAILY, (Reported) Famotidine* (Pepcid 20mg tablet*), 20 MG ORAL DAILY, (Reported) Lorazepam* (Ativan*), 0.5 MG ORAL THREE TIMES A DAY, (Reported) Scheduled PRN Acetaminophen* (Acetaminophen*), 325 MG ORAL Q6H PRN for Mild Pain/Temp > 100.5, (Reported) Acetaminophen* (Acetaminophen*), 650 MG RECTAL Q6H PRN for Mild Pain/Temp > 100.5, (Reported) Diphenhydramine Hcl* (Diphenhydramine Hcl*), 25 MG ORAL Q4HR PRN for Itching, (Reported) Guaifenesin/D-Methorphan Hb/Pe (Robitussin Cough-Cold Cf Liq*), 10 ML ORAL Q8H PRN for FOR COUGH, (Reported) Hydrocodone Bit/Acetaminophen 5-325* ([place] 5-325 Tablet*), 1 TAB ORAL Q4H PRN for FOR PAIN, (Reported) Ondansetron* (Zofran*), 4 MG ORAL Q6H PRN for Nausea & Vomiting, (Reported) Miscellaneous Medications Dexamethasone* (Dexamethasone*), 6 MG PO, (Reported) Patient History Healthcare decision maker Resuscitation status Advanced Directive on File Review of Systems Constitutional: Reports: no symptoms Eye: Reports: no symptoms Respiratory: Reports: cough, orthopnea, shortness of breath Cardiovascular: Reports: no symptoms Musculoskeletal: Reports: no symptoms Skin: Reports: no symptoms Neurological: Reports: no symptoms Endocrine: Reports: no symptoms Hematologic/Lymphatic: Reports: no symptoms Physical Exam General Appearance: severe distress Lines, tubes and drains: peripheral HEENT: normocephalic, atraumatic, anicteric, mucous membranes moist, PERRL Neck: non-tender, normal alignment, supple Respiratory/Chest: chest wall non-tender, accessory muscle use, crackles/rales, rhonchi - bilaterally Cardiovascular/Chest: normal peripheral pulses, normal rate, regular rhythm Abdomen: normal bowel sounds, non tender, soft Extremities: normal range of motion, non-tender, normal inspection, no calf tenderness, normal capillary refill, non-pitting Skin Exam: normal pigmentation, warm/dry Neurologic: electrical calibrator II-XII grossly normal, abnormal gait Last 24 Hour Vital Signs Date Time Temp Pulse Resp B/P (MAP) Pulse Ox O2 Delivery O2 Flow Rate FiO2 08/31/20 12:00 101.8 103 21 119/77 (91) 91 08/31/20 09:00 Non-Rebreather 15.0 08/31/20 08:00 97.9 111 24 139/86 (103) 94 08/31/20 04:00 99.0 104 21 134/77 (96) 94 08/31/20 00:00 99.0 109 22 114/68 (83) 95 08/30/20 21:00 Non-Rebreather 15.0 08/30/20 20:00 99.0 122 22 122/78 (93) 95 08/30/20 17:15 122 24 130/70 89 08/30/20 16:00 97.0 122 24 130/70 (90) 89 Intake and Output 08/30/20 08/31/20 19:00 07:00 Intake Total 275 ml Balance 275 ml Intake Oral 50 ml IV Total 225 ml # Voids 1 2 Laboratory Tests Test 08/30/20 16:15 08/30/20 16:17 08/30/20 16:39 08/30/20 17:23 POC Whole Blood Glucose 564 MG/DL (74-106) *H 521 MG/DL (74-106) *H Pending Pending Test 08/30/20 18:35 08/30/20 20:13 08/30/20 23:01 08/31/20 00:33 POC Whole Blood Glucose Pending 519 MG/DL (74-106) *H 414 MG/DL (74-106) H 416 MG/DL (74-106) H Test 08/31/20 05:52 08/31/20 08:57 08/31/20 10:05 08/31/20 11:59 POC Whole Blood Glucose Pending 372 MG/DL (74-106) H 249 MG/DL (74-106) H White Blood Count 26.0 K/UL (4.8-10.8) *H Red Blood Count 4.11 M/UL (4.70-6.10) L Hemoglobin 13.1 G/DL (14.2-18.0) L Hematocrit 36.6 % (42.0-52.0) L Mean Corpuscular Volume 89 FL (80-99) Mean Corpuscular Hemoglobin 31.8 PG (27.0-31.0) H Mean Corpuscular Hemoglobin Concent 35.7 G/DL (32.0-36.0) Red Cell Distribution Width 15.2 % (11.6-14.8) H Platelet Count 103 K/UL (150-450) L Mean Platelet Volume 7.1 FL (6.5-10.1) Neutrophils (%) (Auto) % (45.0-75.0) Lymphocytes (%) (Auto) % (20.0-45.0) Monocytes (%) (Auto) % (1.0-10.0) Eosinophils (%) (Auto) % (0.0-3.0) Basophils (%) (Auto) % (0.0-2.0) Differential Total Cells Counted 100 Neutrophils % (Manual) 96 % (45-75) H Lymphocytes % (Manual) 3 % (20-45) L Monocytes % (Manual) 1 % (1-10) Eosinophils % (Manual) 0 % (0-3) Basophils % (Manual) 0 % (0-2) Band Neutrophils 0 % (0-8) Platelet Estimate Decreased L Platelet Morphology Normal Anisocytosis 1+ Sodium Level 152 MMOL/L (136-145) H Potassium Level 4.1 MMOL/L (3.5-5.1) Chloride Level 121 MMOL/L (98-107) H Carbon Dioxide Level 18 MMOL/L (21-32) L Anion Gap 13 mmol/L (5-15) Blood Urea Nitrogen 74 mg/dL (7-18) H Creatinine 2.1 MG/DL (0.55-1.30) H Estimat Glomerular Filtration Rate 30.2 mL/min (>60) Glucose Level 394 MG/DL (74-106) H Calcium Level 7.6 MG/DL (8.5-10.1) L Height (Feet): 5 Height (Inches): 6.00 Weight (Pounds): 107 Medications Current Medications Medications (Trade) Dose Ordered Sig/Tim Route PRN Reason Start Time Stop Time Status Last Admin Dose Admin Acetaminophen (Tylenol) 325 mg Q6H PRN ORAL MILD/TEMP 08/30/20 05:30 09/29/20 05:29 08/31/20 12:22 Acetaminophen/ Hydrocodone Bitart ([place] 5/325) 1 tab Q4H PRN ORAL FOR PAIN 08/30/20 05:15 09/06/20 05:14 Barium Sulfate (Varibar Honey) 250 ml NOW PRN RAD 08/30/20 14:15 09/02/20 14:14 Barium Sulfate (Varibar [place]) 240 ml NOW PRN RAD 08/30/20 14:15 09/02/20 14:14 Barium Sulfate (Varibar Pudding) 230 ml NOW PRN RAD 08/30/20 14:15 09/02/20 14:14 Barium Sulfate (Varibar Thin Liquid powder) 148 gm NOW PRN RAD 08/30/20 14:15 09/02/20 14:14 Clonidine HCl (Catapres Tab) 0.1 mg Q6H PRN ORAL For High Blood Pressure 08/30/20 06:00 11/28/20 05:59 Dexamethasone Sodium Phosphate (Decadron 4mg/ml vial) 6 mg Q24H IVP 08/30/20 21:00 09/07/20 21:01 08/30/20 20:57 Dextrose (Dextrose 50%) 25 ml Q30M PRN IV Hypoglycemia 08/31/20 07:00 11/29/20 06:59 Dextrose (Dextrose 50%) 50 ml Q30M PRN IV Hypoglycemia 08/31/20 07:00 11/29/20 06:59 Diphenhydramine HCl (Benadryl) 25 mg Q4H PRN ORAL Itching 08/30/20 05:15 09/29/20 05:14 Docusate Sodium (Colace) 100 mg THREE TIMES A DAY ORAL 08/30/20 09:00 09/29/20 08:59 08/31/20 12:22 Enoxaparin Sodium (Lovenox) 40 mg DAILY@1800 SUBQ 08/30/20 18:00 11/28/20 17:59 08/30/20 17:16 Famotidine (Pepcid) 20 mg DAILY ORAL 08/30/20 09:00 11/28/20 08:59 08/31/20 08:57 Insulin Aspart (NovoLOG) EVERY 4 HOURS SUBQ 08/31/20 07:00 11/28/20 20:59 08/31/20 12:23 Insulin Detemir (Levemir) 20 units BID SUBQ 08/31/20 09:00 11/29/20 08:59 08/31/20 09:00 Ivermectin (StromectoL) 9 mg ONCE ORAL 08/31/20 14:00 08/31/20 16:00 Lorazepam (Ativan 2mg/ml 1ml) 0.5 mg Q4H PRN IV AGITATION 08/30/20 17:00 09/06/20 16:59 08/30/20 17:15 Lorazepam (Ativan) 0.5 mg THREE TIMES A DAY PRN ORAL Agitation 08/30/20 09:00 09/06/20 08:59 Ondansetron HCl (Zofran) 4 mg Q6H PRN ORAL Nausea & Vomiting 08/30/20 05:15 09/29/20 05:14 Sodium Chloride 1,000 ml @ 125 mls/hr Q8H IV 08/30/20 14:00 09/29/20 13:59 08/31/20 08:58 Assessment/Plan Status: stable Assessment/Plan: 1. Leukocytosis. 2. UTI. 3. Renal failure/insufficiency. 4. Hyperglycemia. 5. Lactic acidemia. 6. Elevated ferritin. 7. Troponin leak. 8. Elevated D-dimer. 9. Recent COVID pneumonia. 10. DNR/DNI. 11. COPD. 12. Hypertension. 13. Dysphagia with aspiration Patient with multiple comorbities and overall poor prognosis with COVID infection Continue supportive care Daily CXR Monitor hemodynamics Echocardiogram pending Defer further invasive testing/procedures Patient on ivermectin and empiric steroids Will continue to follow DNR/DNI noted Geoff Howard MD Aug 31, 2020 12:59
[2020-08-31] MEDS ORDERED: Acetaminophen 650 MG SUPP RECTAL PRN (13:00)
--- NOTE | 2020-08-31 13:03 | NUR ---
NURSE NOTES: Patient's PO medication Ivermectin held d/t trouble swallowing/cannot tolerate PO.
--- NOTE | 2020-08-31 13:45 | Consultation ---
DATE OF CONSULTATION: 08/31/2020 ENDOCRINOLOGY CONSULTATION CONSULTING PHYSICIAN: Rashid Tompkins MD. REFERRING PHYSICIAN: Deshawn Brooks MD. REASON FOR CONSULTATION: Diabetes management. HISTORY OF PRESENT ILLNESS: It is important to note that history was mostly obtained from the review of the chart and medical records. The patient has dementia and not able to provide any meaningful history. The patient is an 85-year-old male with history of CVA and dementia, resides at a fdc facility, also diabetic, recently diagnosed with COVID-19 pneumonia tested positive on 08/21/2020 and he was hypoxic, transferred to [facility] and admitted to the medical floor. The patient is a DNR/DNI. PAST MEDICAL HISTORY: 1. Hypertension. 2. COPD. 3. CVA. 4. TIA. 5. COVID pneumonia. 6. Hypothyroidism. 7. Diabetes. 8. Hyperlipidemia. 9. BPH. REVIEW OF SYSTEMS: Unobtainable. MEDICATIONS: Reviewed and reconciled. PHYSICAL EXAMINATION: VITAL SIGNS: Blood pressure 137/77, heart rate 104, temperature of 99. Exam was deferred due to COVID isolation. LABORATORY VALUES: WBC 18.9, hemoglobin. 13.5, hematocrit 38.5, platelets of 156. Sodium 140, potassium 4.5, chloride 108, bicarbonate 20, BUN 54, creatinine 2.0, glucose of 400. Ferritin over 2000. Lactic acid 2.5. Lipase 85. DIAGNOSES: 1. Diabetes, out of control exacerbated by steroids. 2. COVID pneumonia. 3. Questionable hypothyroidism. 4. Underlying dementia. DISCUSSION: 1. Patient is NPO. 2. Change glucose monitoring to every 4 hours with high-dose NovoLog sliding scale coverage. 3. Add Levemir 20 units b.i.d. The full dose should be given even if the patient is NPO, but it is to be held if the glucose is less than 100 mg/dL. 4. Hypoglycemia protocol is in order. 5. Increase IV fluid rate to 100 mL/hour. 6. Thyroid function test ordered. Thank you, Dr. Brooks, for the courtesy of this consultation. Rashid Tompkins M.D. DR: RN/LISBETH JOB#: [id number] CC: TREVER
[2020-08-31] MEDS: LORazepam Inj 2mg/ml 1ml IV PRN (14:14)
[2020-08-31 15:00] VITALS: BP 115/74
--- NOTE | 2020-08-31 16:51 | NUR ---
NURSE NOTES: Called Dr. Cecilia Hess and reported episodes of fever (101.8) and tachycardia (130s) also reported that the pt is unable to tolerate anything PO at this time and that meds have been on hold for aspiration precautions. MD aware with no new orders at this time, will continue to monitor.
--- NOTE | 2020-08-31 16:56 | NUR ---
CASE MANAGEMENT:INITIAL REVIEW 85 YR OLD MALE BIB[facility] CC;RESPIRATORY DISTRESS SI;COVID PNEUMONIA 102.3 103 24 152/86 92% 15L NRBM WBC 18.9 CL 108 BUN 54 CR 2.0 BG 400 LAC ACID 2.50 CA 7.8 FERRITIN >2000 ALP 123 LDH 480 TROP 0.148 CRP 45.8 BNP 4581 ALB 1.8 PT 12.6 INR 1.2 D-DIMER >35.20 UA+ PROTEIN, GLUCOSE, KETONES, BLOOD, BILIRUBIN, LEUKOCYTE ESTERASE, RBC, WBC, BACTERIA, YEAST CXR ~ Bibasilar infiltrates. Ill-defined lucencies in the upper mediastinum. Question possible pneumomediastinum. IS;ZITHROMAX IV DECADRON IV ROCEPHIN IV LOVENOX SQ TYLENOL RECTAL IVF NS BOLUS ADMITTED TO MED SUR[facility] MED [facility]G STATUS DCP;[facility]
[2020-08-31] MEDS: Enoxaparin 40mg Inj SUBQ SCH (17:03)
--- NOTE | 2020-08-31 19:24 | NUR ---
NURSE HAND-OFF: Important Events on Shift:[monitoring vitals, labs, IV fluids, 02 therapy] Patient Status: [needs frequent monitoring] Diet: [NPO] Pending Orders: [] Pending Results/Labs:[] Pending MD notification:[] Latest Vital Signs: Temperature 99.6 , Pulse 110 , B/P 115 /75 , Respiratory Rate 22 , O2 SAT 97 , Non-Rebreather, O2 Flow Rate 15.0 . Vital Sign Comment: [] Latest Day Fall Score: 50 Fall Risk: High Risk Safety Measures: Call light Within Reach, Bed Alarm Zone 2, Side Rails Side Rails x3, Bed position Low and Locked. Fall Precautions: Patient Fall Education Report given to [KAITLYN Lynn].
--- NOTE | 2020-08-31 19:25 | NUR ---
NURSE NOTES: Pt is awake in bed, eyes open, alert and oriented x 0, nonverbal, Bed is locked, in lowest position, bed alarm on, on droplet and contact isolation precautions for COVID, On bilateral soft wrist restraints to prevent pt from trying to remove non-rebreather oxygen mask and IV, on non rebreather mask at 15 L/min, was satting low in the 80's initially, but called respiratory and now O2 is 93-96%. Peripheral IV line right AC 18 g, asymptomatic, patent, running NS at 125 ml/h, will continue to monitor and proceed with plan of care, call light iswithin reach
[2020-08-31 20:00] VITALS: BP 110/60
--- NOTE | 2020-08-31 20:00 | NUR ---
NURSE NOTES: Noticed pt sodium level is 152, called Dr Brooks to verify that he still wants pt on NS at 125/h. said he is aware and to continue NS at 125.
[2020-09-01] VITALS: BP 118/64
[2020-09-01] MEDS: NovoLOG Insulin Flexpen SUBQ SCH ×6 (02:53→20:31)
[2020-09-01 04:00] VITALS: BP 148/86
--- NOTE | 2020-09-01 05:30 | NUR ---
NURSE NOTES: d/c'd restraints at 0530 no indication for use as pt is very passive and no longer agitated
--- NOTE | 2020-09-01 07:25 | NUR ---
NURSE NOTES: Report received from Leah SAHNI, rounds made. Patient sleeping, barely awakens to name, or touch, slightly with gentle shaking. Skin warm. Respirations even/slightly rapid on O2 15L non-rebreather mask. No cough noted. Remains NPO. Skin precautions. NS at 125 ml/hr to RAC, site asymptomatic. Bed in lowest position, will continue to monitor.
--- NOTE | 2020-09-01 07:39 | NUR ---
NURSE HAND-OFF: Important Events on Shift:[- noted wounds on sacral/coccygeal area and bilat ears behind where O2 mask is. monitoring vitals, labs, IV fluids, 02 therapy] Patient Status: [needs frequent monitoring] Diet: [NPO] strict can desaturate to high 80's when changing pt- currently satting at 98% on 15 L nonrebreather Latest Vital Signs: Temperature 99.6 , Pulse 110 , B/P 115 /75 , Respiratory Rate 22 , O2 SAT 97 , Non-Rebreather, O2 Flow Rate 15.0 . Vital Sign Comment: [] Latest Raymond Fall Score: 50 Fall Risk: High Risk Safety Measures: Call light Within Reach, Bed Alarm Zone 2, Side Rails Side Rails x3, Bed position Low and Locked. Fall Precautions: Patient Fall Education Report given to Lola SAHNI Addendum: 09/01/20 at 0750 by Leah Carlin RN d/c'd restraints at 0530 no indication for use as pt is very passive and no longer agitated
[2020-09-01 08:00] VITALS: BP 95/52
[2020-09-01] MEDS: Docusate 100mg cap ORAL SCH ×3 (09:00→17:15)
[2020-09-01] MEDS: Levemir Flexpen SUBQ SCH ×2 (10:23→17:25)
--- NOTE | 2020-09-01 10:26 | CDS Physician Query ---
Clarification is required for compliance, coding accuracy, and to reflect severity of illness for this patient Dear Dr. 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 Acute respiratory failure with hypoxia...Pneumonia due to COVID-19 virus Vitals/labs on admission: Temp 102.3, HR 103, RR 24, WBC 18.9 According to the clinical indications above, please indicate below the condition PHYSICIAN RESPONSE: [] Sepsis [] SIRS [] SIRS with organ dysfunction [] Septic Shock [] Not applicable [] Other: Present on Admission: Yes No Clinically Undetermined Physician signature Date Please also document in your Progress Notes and/or Discharge Summary and indicate if the condition was present on admission. IMERD
--- NOTE | 2020-09-01 11:58 | Infectious Diseases Prog Note ---
Assessment/Plan Assessment/Plan A: 1. COVID-19 pneumonia. 2. Hypertension. 3. Leukocytosis could be secondary to steroids. 4. COPD. 5. CVA. 6. Hypoxemia PLAN: 1. Continue Decadron that has been started day #4 2. Continue isolation. Subjective ROS Limited/Unobtainable: Yes Allergies: Coded Allergies: No Known Allergies (Unverified , 08/29/20) Objective Last 24 Hour Vital Signs Date Time Temp Pulse Resp B/P (MAP) Pulse Ox O2 Delivery O2 Flow Rate FiO2 09/01/20 04:00 98.4 125 36 148/86 (106) 94 09/01/20 00:00 99.1 124 38 118/64 (82) 94 08/31/20 21:00 Non-Rebreather 15.0 08/31/20 20:58 22 96 08/31/20 20:00 99.7 66 33 110/60 (77) 90 08/31/20 15:03 110 22 115/75 97 08/31/20 15:00 99.6 110 21 115/74 (88) 91 08/31/20 14:14 119 21 119/77 91 08/31/20 14:00 99.6 08/31/20 12:00 101.8 103 21 119/77 (91) 91 Height (Feet): 5 Height (Inches): 6.00 Weight (Pounds): 107 HEENT: mucous membranes moist Respiratory/Chest: decreased breath sounds, other - oxygen by rebreathing mask Cardiovascular: tachycardia Abdomen: soft, non tender Extremities: no edema Neurologic/Psychiatric: unresponsiveness Microbiology Date/Time Source Procedure Growth Status 08/30/20 17:30 Nasopharynx Coronavirus COVID-19 PCR ([facility]UAN MIGUEL) - Final Complete 08/29/20 22:45 Blood Blood Culture - Preliminary NO GROWTH AFTER 48 HOURS Resulted 08/29/20 22:30 Rectum - Final NO CARBAPENEM-RESISTANT ENTEROBACTERI... Complete 08/29/20 22:30 Rectum VRE Culture - Final NO VANCOMYCIN RESISTANT ENTEROCOCCUS ... Complete 08/29/20 22:30 Urine,Clean Catch Urine Culture - Preliminary YEAST Resulted 08/29/20 22:30 Nasal Nares MRSA Culture - Final NO METHICILLIN RESISTANT STAPH AUREUS... Complete 08/29/20 22:30 Blood Blood Culture - Preliminary NO GROWTH AFTER 48 HOURS Resulted Laboratory Tests Test 08/31/20 11:59 08/31/20 16:23 08/31/20 20:43 09/01/20 02:49 POC Whole Blood Glucose 249 MG/DL (74-106) H 117 MG/DL (74-106) H 94 MG/DL (74-106) 172 MG/DL (74-106) H Test 09/01/20 05:03 09/01/20 05:04 POC Whole Blood Glucose 217 MG/DL (74-106) H 227 MG/DL (74-106) H Current Medications Medications (Trade) Dose Ordered Sig/Tim Route PRN Reason Start Time Stop Time Status Last Admin Dose Admin Acetaminophen (Tylenol) 325 mg Q6H PRN ORAL MILD/TEMP 08/30/20 05:30 09/29/20 05:29 Acetaminophen (Tylenol) 650 mg Q4H PRN RECTAL Temp >100.5 08/31/20 13:00 09/30/20 12:59 08/31/20 13:12 Acetaminophen/ Hydrocodone Bitart ([place] 5/325) 1 tab Q4H PRN ORAL FOR PAIN 08/30/20 05:15 09/06/20 05:14 Barium Sulfate (Varibar Honey) 250 ml NOW PRN MC RAD 08/30/20 14:15 09/02/20 14:14 Barium Sulfate (Varibar [place]) 240 ml NOW PRN MC RAD 08/30/20 14:15 09/02/20 14:14 Barium Sulfate (Varibar Pudding) 230 ml NOW PRN MC RAD 08/30/20 14:15 09/02/20 14:14 Barium Sulfate (Varibar Thin Liquid powder) 148 gm NOW PRN MC RAD 08/30/20 14:15 09/02/20 14:14 Clonidine HCl (Catapres Tab) 0.1 mg Q6H PRN ORAL For High Blood Pressure 08/30/20 06:00 11/28/20 05:59 Dexamethasone Sodium Phosphate (Decadron 4mg/ml vial) 6 mg Q24H IVP 08/30/20 21:00 09/07/20 21:01 08/31/20 20:49 Dextrose (Dextrose 50%) 25 ml Q30M PRN IV Hypoglycemia 08/31/20 07:00 11/29/20 06:59 Dextrose (Dextrose 50%) 50 ml Q30M PRN IV Hypoglycemia 08/31/20 07:00 11/29/20 06:59 Diphenhydramine HCl (Benadryl) 25 mg Q4H PRN ORAL Itching 08/30/20 05:15 09/29/20 05:14 Docusate Sodium (Colace) 100 mg THREE TIMES A DAY ORAL 08/30/20 09:00 09/29/20 08:59 08/31/20 08:57 Enoxaparin Sodium (Lovenox) 40 mg DAILY@1800 SUBQ 08/30/20 18:00 11/28/20 17:59 08/30/20 17:16 Famotidine (Pepcid) 20 mg DAILY ORAL 08/30/20 09:00 11/28/20 08:59 08/31/20 08:57 Insulin Aspart (NovoLOG) EVERY 4 HOURS SUBQ 08/31/20 07:00 11/28/20 20:59 09/01/20 10:22 Insulin Detemir (Levemir) 20 units BID SUBQ 08/31/20 09:00 11/29/20 08:59 09/01/20 10:23 Lorazepam (Ativan 2mg/ml 1ml) 0.5 mg Q4H PRN IV AGITATION 08/30/20 17:00 09/06/20 16:59 08/31/20 14:14 Lorazepam (Ativan) 0.5 mg THREE TIMES A DAY PRN ORAL Agitation 08/30/20 09:00 09/06/20 08:59 Ondansetron HCl (Zofran) 4 mg Q6H PRN ORAL Nausea & Vomiting 08/30/20 05:15 09/29/20 05:14 Sodium Chloride 1,000 ml @ 125 mls/hr Q8H IV 08/30/20 14:00 09/29/20 13:59 09/01/20 10:27 Corwin Blue MD Sep 01, 2020 11:58
[2020-09-01 12:00] VITALS: BP 130/68
--- NOTE | 2020-09-01 13:00 | NUR ---
NURSE NOTES: Discussed with need for wound consult with Dr. Egan per Wound Nurse.
--- NOTE | 2020-09-01 14:22 | Pulmonology Progress Note ---
Subjective ROS Limited/Unobtainable: Yes Interval Events: Tachycardia; tachypnea Constitutional: Reports: no symptoms Cardiovascular: Reports: no symptoms Gastrointestinal/Abdominal: Reports: no symptoms Genitourinary: Reports: no symptoms Allergies: Coded Allergies: No Known Allergies (Unverified , 08/29/20) Objective Last 24 Hour Vital Signs Date Time Temp Pulse Resp B/P (MAP) Pulse Ox O2 Delivery O2 Flow Rate FiO2 09/01/20 04:00 98.4 125 36 148/86 (106) 94 09/01/20 00:00 99.1 124 38 118/64 (82) 94 08/31/20 21:00 Non-Rebreather 15.0 08/31/20 20:58 22 96 08/31/20 20:00 99.7 66 33 110/60 (77) 90 08/31/20 15:03 110 22 115/75 97 08/31/20 15:00 99.6 110 21 115/74 (88) 91 Intake and Output 08/31/20 09/01/20 19:00 07:00 Intake Total 125 ml 500 ml Output Total 700 ml Balance 125 ml -200 ml IV Total 125 ml 500 ml Output Urine Total 700 ml # Voids 3 Objective 09/01/2020 can desaturate to high 80's when changing pt- currently satting at 98% on 15 L nonrebreather per RN 08/31/2020 DNR/DNI noted; 93% on 15 lpm NRB General Appearance: no acute distress, cachetic HEENT: normocephalic, atraumatic, other Respiratory: chest wall non-tender, lungs clear Cardiovascular: normal peripheral pulses, regular rhythm, tachycardia Abdomen: soft, non tender Extremities: no cyanosis, no clubbing Neurologic: alert, responsive Microbiology Date/Time Source Procedure Growth Status 08/30/20 17:30 Nasopharynx Coronavirus COVID-19 PCR ([facility]IG[facility]EL) - Final Complete 08/29/20 22:45 Blood Blood Culture - Preliminary NO GROWTH AFTER 48 HOURS Resulted 08/29/20 22:30 Rectum - Final NO CARBAPENEM-RESISTANT ENTEROBACTERI... Complete 08/29/20 22:30 Rectum VRE Culture - Final NO VANCOMYCIN RESISTANT ENTEROCOCCUS ... Complete 08/29/20 22:30 Urine,Clean Catch Urine Culture - Preliminary YEAST Resulted 08/29/20 22:30 Nasal Nares MRSA Culture - Final NO METHICILLIN RESISTANT STAPH AUREUS... Complete 08/29/20 22:30 Blood Blood Culture - Preliminary NO GROWTH AFTER 48 HOURS Resulted Laboratory Tests 08/31/20 16:23: POC Whole Blood Glucose 117H 08/31/20 20:43: POC Whole Blood Glucose 94 09/01/20 02:49: POC Whole Blood Glucose 172H 09/01/20 05:03: POC Whole Blood Glucose 217H 09/01/20 05:04: POC Whole Blood Glucose 227H 09/01/20 13:14: POC Whole Blood Glucose 194H Current Medications Medications (Trade) Dose Ordered Sig/Tim Route PRN Reason Start Time Stop Time Status Last Admin Dose Admin Acetaminophen (Tylenol) 325 mg Q6H PRN ORAL MILD/TEMP 08/30/20 05:30 09/29/20 05:29 Acetaminophen (Tylenol) 650 mg Q4H PRN RECTAL Temp >100.5 08/31/20 13:00 09/30/20 12:59 08/31/20 13:12 Acetaminophen/ Hydrocodone Bitart ([place] 5/325) 1 tab Q4H PRN ORAL FOR PAIN 08/30/20 05:15 09/06/20 05:14 Barium Sulfate (Varibar Honey) 250 ml NOW PRN MC RAD 08/30/20 14:15 09/02/20 14:14 Barium Sulfate (Varibar [place]) 240 ml NOW PRN MC RAD 08/30/20 14:15 09/02/20 14:14 Barium Sulfate (Varibar Pudding) 230 ml NOW PRN MC RAD 08/30/20 14:15 09/02/20 14:14 Barium Sulfate (Varibar Thin Liquid powder) 148 gm NOW PRN MC RAD 08/30/20 14:15 09/02/20 14:14 Clonidine HCl (Catapres Tab) 0.1 mg Q6H PRN ORAL For High Blood Pressure 08/30/20 06:00 11/28/20 05:59 Dexamethasone Sodium Phosphate (Decadron 4mg/ml vial) 6 mg Q24H IVP 08/30/20 21:00 09/07/20 21:01 08/31/20 20:49 Dextrose (Dextrose 50%) 25 ml Q30M PRN IV Hypoglycemia 08/31/20 07:00 11/29/20 06:59 Dextrose (Dextrose 50%) 50 ml Q30M PRN IV Hypoglycemia 08/31/20 07:00 11/29/20 06:59 Diphenhydramine HCl (Benadryl) 25 mg Q4H PRN ORAL Itching 08/30/20 05:15 09/29/20 05:14 Docusate Sodium (Colace) 100 mg THREE TIMES A DAY ORAL 08/30/20 09:00 09/29/20 08:59 08/31/20 08:57 Enoxaparin Sodium (Lovenox) 40 mg DAILY@1800 SUBQ 08/30/20 18:00 11/28/20 17:59 08/30/20 17:16 Famotidine (Pepcid) 20 mg DAILY ORAL 08/30/20 09:00 11/28/20 08:59 08/31/20 08:57 Insulin Aspart (NovoLOG) EVERY 4 HOURS SUBQ 08/31/20 07:00 11/28/20 20:59 09/01/20 13:18 Insulin Detemir (Levemir) 20 units BID SUBQ 08/31/20 09:00 11/29/20 08:59 09/01/20 10:23 Lorazepam (Ativan 2mg/ml 1ml) 0.5 mg Q4H PRN IV AGITATION 08/30/20 17:00 09/06/20 16:59 08/31/20 14:14 Lorazepam (Ativan) 0.5 mg THREE TIMES A DAY PRN ORAL Agitation 08/30/20 09:00 09/06/20 08:59 Ondansetron HCl (Zofran) 4 mg Q6H PRN ORAL Nausea & Vomiting 08/30/20 05:15 09/29/20 05:14 Sodium Chloride 1,000 ml @ 125 mls/hr Q8H IV 08/30/20 14:00 09/29/20 13:59 09/01/20 10:27 Assessment/Plan Assessment/Plan 1. Leukocytosis. 2. UTI. 3. Renal failure/insufficiency. 4. Hyperglycemia. -On glucose lowering agents 5. Lactic acidemia. 6. Elevated ferritin. 7. Troponin leak. 8. Elevated D-dimer. 9. Recent COVID pneumonia. 10. DNR/DNI. 11. COPD. 12. Hypertension. 13. Dysphagia with aspiration - NPO per speech therapist recommendation 14. Irritated skin bilateral superior ears, likely due to nasal cannula tubing -Per wound care Cardio consult Nephro consult Patient has multiple comorbidities. He is a candidate for palliative care. The care of this patient was discussed with my supervising physician Time spent for this encounter was approximately 31 minutes The patient was seen and examined at bedside and all new and available data was reviewed in the patients chart. I agree with the above findings, impression, and plan. (Patient was seen earlier today. Signature timestamp does not reflect patient encounter time) Darian Hull MD Sep 01, 2020 14:22 Deshawn Brooks MD Sep 01, 2020 18:02
--- NOTE | 2020-09-01 14:36 | NUR ---
CASE MANAGEMENT:REVIEW SI;COVID PNEUMONIA. 99.7 125 38 148/86 90% 15L NRBM IS;DECADRON IV Q24 IVF NS @ 125 ML/HR MED SURG STATUS DCP;[facility] PL[facility]; [facility]OSPICE EVAL [facility]
[2020-09-01 16:00] VITALS: BP 143/76
[2020-09-01] MEDS: Enoxaparin 40mg Inj SUBQ SCH (17:25)
--- NOTE | 2020-09-01 17:30 | NUR ---
NURSE NOTES:WOUND CARE NOTES:Pt deconditioned with multiple Pressure Injuries. DTPI Noted to L Ear(L)1.2cm x (W)0.3cm. Base of Pressure Injury is purpuric with marginal erythema along borders. DTPI R Ear(L)1cm x (W)0.5cm. Base of Pressure Injury is purpuric with surrounding maroon borders. Category 3 Skin Tear L Elbow.100% skin flap loss with Biofilm at base of wound. Edges are erythematous and macerated. No exudate or odor noted. Periwound without erythema or changes in skin temp. DTPI Sacrum(L)8.5cm x (W)4.3cm. Base of wound is maroon,indurated and Purpuric at sacrococcygeal area..NON-blanchable erythema periwound. Non-Blanchable erythema without induration L trochanteric.(L)10cm x (W)10cm. R Heel is boggy with non-blanchable erythema. L Heel is boggy with non-Blanchable erythema. Non-Blanchable erythema without induration L Hallux. Tx.Plan: Apply Cavilon Skin Barrier to each ear. Cover each ear with Optifoam drsgs. Change every 3 days and prn. Cleanse Skin Tear L Elbow with Saline. Apply Silvasorb Gel. Cover with Optifoam drsg. Change every 7 days and prn. Apply Moisture Barrier Paste to Sacrum. Cover with Optifoam drsg. Change every 3 days and prn. Apply Cavilon Skin Barrier to L and R trochanters. Cover each site with Optifoam drsgs. Change every 7 days and prn. Apply Cavilon Skin Barrier to R and L Heels and each Malleoli. Cover each site with Optifoam drsgs. Change every 7 days and prn. COVER BONY PROMINENCES NEEDED WITH OPTIFOAM DRGS. Reposition at Least Every 2Hrs or as Tolerated. Off-load heels with Pillow. APM/[employer]LE[employer] Mattress overlay
--- NOTE | 2020-09-01 17:41 | General Progress Note ---
Subjective ROS Limited/Unobtainable: Yes Allergies: Coded Allergies: No Known Allergies (Unverified , 08/29/20) Subjective events noted glucose values improved Item Value Date Time Bedside Blood Glucose 191 mg/dl H 09/01/20 1725 Bedside Blood Glucose 194 mg/dl H 09/01/20 1318 Bedside Blood Glucose 241 mg/dl H 09/01/20 1023 Bedside Blood Glucose 227 mg/dl H 09/01/20 0615 Bedside Blood Glucose 172 mg/dl H 09/01/20 0253 Objective Last 24 Hour Vital Signs Date Time Temp Pulse Resp B/P (MAP) Pulse Ox O2 Delivery O2 Flow Rate FiO2 09/01/20 16:00 98.7 106 28 143/76 (98) 100 09/01/20 12:00 98.8 107 28 130/68 (88) 96 09/01/20 09:00 Non-Rebreather 15.0 09/01/20 08:00 98.1 105 28 95/52 (66) 99 09/01/20 04:00 98.4 125 36 148/86 (106) 94 09/01/20 00:00 99.1 124 38 118/64 (82) 94 08/31/20 21:00 Non-Rebreather 15.0 08/31/20 20:58 22 96 08/31/20 20:00 99.7 66 33 110/60 (77) 90 Intake and Output 08/31/20 09/01/20 19:00 07:00 Intake Total 125 ml 500 ml Output Total 700 ml Balance 125 ml -200 ml IV Total 125 ml 500 ml Output Urine Total 700 ml # Voids 3 Laboratory Tests 08/31/20 20:43: POC Whole Blood Glucose 94 09/01/20 02:49: POC Whole Blood Glucose 172H 09/01/20 05:03: POC Whole Blood Glucose 217H 09/01/20 05:04: POC Whole Blood Glucose 227H 09/01/20 13:14: POC Whole Blood Glucose 194H 09/01/20 17:22: POC Whole Blood Glucose 191H Height (Feet): 5 Height (Inches): 6.00 Weight (Pounds): 107 Objective Current Medications Medications (Trade) Dose Ordered Sig/Tim Route PRN Reason Start Time Stop Time Status Last Admin Dose Admin Acetaminophen (Tylenol) 325 mg Q6H PRN ORAL MILD/TEMP 08/30/20 05:30 09/29/20 05:29 Acetaminophen (Tylenol) 650 mg Q4H PRN RECTAL Temp >100.5 08/31/20 13:00 09/30/20 12:59 08/31/20 13:12 Acetaminophen/ Hydrocodone Bitart ([place] 5/325) 1 tab Q4H PRN ORAL FOR PAIN 08/30/20 05:15 09/06/20 05:14 Barium Sulfate (Varibar Honey) 250 ml NOW PRN MC RAD 08/30/20 14:15 09/02/20 14:14 Barium Sulfate (Varibar [place]) 240 ml NOW PRN MC RAD 08/30/20 14:15 09/02/20 14:14 Barium Sulfate (Varibar Pudding) 230 ml NOW PRN MC RAD 08/30/20 14:15 09/02/20 14:14 Barium Sulfate (Varibar Thin Liquid powder) 148 gm NOW PRN RAD 08/30/20 14:15 09/02/20 14:14 Clonidine HCl (Catapres Tab) 0.1 mg Q6H PRN ORAL For High Blood Pressure 08/30/20 06:00 11/28/20 05:59 Dexamethasone Sodium Phosphate (Decadron 4mg/ml vial) 6 mg Q24H IVP 08/30/20 21:00 09/07/20 21:01 08/31/20 20:49 Dextrose (Dextrose 50%) 25 ml Q30M PRN IV Hypoglycemia 08/31/20 07:00 11/29/20 06:59 Dextrose (Dextrose 50%) 50 ml Q30M PRN IV Hypoglycemia 08/31/20 07:00 11/29/20 06:59 Diphenhydramine HCl (Benadryl) 25 mg Q4H PRN ORAL Itching 08/30/20 05:15 09/29/20 05:14 Docusate Sodium (Colace) 100 mg THREE TIMES A DAY ORAL 08/30/20 09:00 09/29/20 08:59 08/31/20 08:57 Enoxaparin Sodium (Lovenox) 40 mg DAILY@1800 SUBQ 08/30/20 18:00 11/28/20 17:59 08/30/20 17:16 Famotidine (Pepcid) 20 mg DAILY ORAL 08/30/20 09:00 11/28/20 08:59 08/31/20 08:57 Insulin Aspart (NovoLOG) EVERY 4 HOURS SUBQ 08/31/20 07:00 11/28/20 20:59 09/01/20 17:24 Insulin Detemir (Levemir) 20 units BID SUBQ 08/31/20 09:00 11/29/20 08:59 09/01/20 17:25 Lorazepam (Ativan 2mg/ml 1ml) 0.5 mg Q4H PRN IV AGITATION 08/30/20 17:00 09/06/20 16:59 08/31/20 14:14 Lorazepam (Ativan) 0.5 mg THREE TIMES A DAY PRN ORAL Agitation 08/30/20 09:00 09/06/20 08:59 Ondansetron HCl (Zofran) 4 mg Q6H PRN ORAL Nausea & Vomiting 08/30/20 05:15 09/29/20 05:14 Sodium Chloride 1,000 ml @ 125 mls/hr Q8H IV 08/30/20 14:00 09/29/20 13:59 09/01/20 17:26 Assessment/Plan Problem List: (1) Diabetes mellitus out of control ICD Codes: E11.65 - Type 2 diabetes mellitus with hyperglycemia SNOMED: 54099557, 164554472 (2) ARF (acute renal failure) ICD Codes: N17.9 - Acute kidney failure, unspecified SNOMED: 99790812 Qualifiers: Qualified Codes: N17.9 - Acute kidney failure, unspecified (3) ACS (acute coronary syndrome) ICD Codes: I24.9 - Acute ischemic heart disease, unspecified SNOMED: 555805359 (4) Sepsis ICD Codes: A41.9 - Sepsis, unspecified organism SNOMED: 01736016, 859727143 Qualifiers: Qualified Codes: A41.9 - Sepsis, unspecified organism; R65.20 - Severe sepsis without septic shock; J96.01 - Acute respiratory failure with hypoxia (5) Respiratory failure with hypoxia ICD Codes: J96.91 - Respiratory failure, unspecified with hypoxia SNOMED: 50030386174261755 Qualifiers: Qualified Codes: J96.01 - Acute respiratory failure with hypoxia (6) Acute metabolic encephalopathy ICD Codes: G93.41 - Metabolic encephalopathy SNOMED: 19301125, 471894086 (7) Pneumonia due to COVID-19 virus ICD Codes: U07.1 - COVID-19; J12.89 - Other viral pneumonia SNOMED: 043482666053249417 Status: stable Assessment/Plan: continue Levemir 20 units bid continue Novolog sliding scale every 4 hours Rashid Tompkins MD Sep 01, 2020 17:41
[2020-09-01] MEDS ORDERED: FLEET ENEMA133 ML RECTAL (18:16)
[2020-09-01] MEDS ORDERED: ACETAMINOPHEN650 MG RECTAL (18:16)
[2020-09-01] MEDS ORDERED: PROVENTIL HFA6.7 G1 IH (18:16)
--- NOTE | 2020-09-01 18:39 | Cardiology Progress Note ---
Assessment/Plan Status: stable Assessment/Plan Assessment/Plan Status: stable Assessment/Plan: 1. Leukocytosis. 2. UTI. 3. Renal failure/insufficiency. 4. Hyperglycemia. 5. Lactic acidemia. 6. Elevated ferritin. 7. Troponin leak. 8. Elevated D-dimer. 9. Recent COVID pneumonia. 10. DNR/DNI. 11. COPD. 12. Hypertension. 13. Dysphagia with aspiration Patient with multiple comorbities and overall poor prognosis with COVID infection Continue supportive care Daily CXR Monitor hemodynamics Echocardiogram pending Defer further invasive testing/procedures Patient on ivermectin and empiric steroids Will continue to follow DNR/DNI noted Subjective Cardiovascular: Reports: no symptoms Respiratory: Reports: no symptoms Gastrointestinal/Abdominal: Reports: no symptoms Genitourinary: Reports: no symptoms Subjective Patient remains in isolation and on steroids, tahcycardic but BP and glucose improved Objective Last 24 Hour Vital Signs Date Time Temp Pulse Resp B/P (MAP) Pulse Ox O2 Delivery O2 Flow Rate FiO2 09/01/20 16:00 98.7 106 28 143/76 (98) 100 09/01/20 12:00 98.8 107 28 130/68 (88) 96 09/01/20 09:00 Non-Rebreather 15.0 09/01/20 08:00 98.1 105 28 95/52 (66) 99 09/01/20 04:00 98.4 125 36 148/86 (106) 94 09/01/20 00:00 99.1 124 38 118/64 (82) 94 08/31/20 21:00 Non-Rebreather 15.0 08/31/20 20:58 22 96 08/31/20 20:00 99.7 66 33 110/60 (77) 90 General Appearance: no apparent distress, alert EENT: PERRL/EOMI, TMs normal Neck: non-tender, supple Rhythm: ST Cardiovascular: normal rate, regular rhythm Respiratory/Chest: chest wall non-tender, accessory muscle use, crackles/rales, rhonchi - bilaterally Abdomen: non tender, soft, no organomegaly Extremities: normal range of motion, non-tender, normal inspection Neurologic: public speaker II-XII grossly normal, no motor/sensory deficits Intake and Output 08/31/20 09/01/20 19:00 07:00 Intake Total 125 ml 500 ml Output Total 700 ml Balance 125 ml -200 ml IV Total 125 ml 500 ml Output Urine Total 700 ml # Voids 3 Laboratory Tests Test 08/31/20 20:43 09/01/20 02:49 09/01/20 05:03 09/01/20 05:04 POC Whole Blood Glucose 94 MG/DL (74-106) 172 MG/DL (74-106) H 217 MG/DL (74-106) H 227 MG/DL (74-106) H Test 09/01/20 13:14 09/01/20 17:22 POC Whole Blood Glucose 194 MG/DL (74-106) H 191 MG/DL (74-106) H Microbiology Date/Time Source Procedure Growth Status 08/30/20 17:30 Nasopharynx Coronavirus COVID-19 PCR ([facility]IG[facility]EL) - Final Complete 08/29/20 22:45 Blood Blood Culture - Preliminary NO GROWTH AFTER 48 HOURS Resulted 08/29/20 22:30 Rectum - Final NO CARBAPENEM-RESISTANT ENTEROBACTERI... Complete 08/29/20 22:30 Rectum VRE Culture - Final NO VANCOMYCIN RESISTANT ENTEROCOCCUS ... Complete 08/29/20 22:30 Urine,Clean Catch Urine Culture - Preliminary YEAST Resulted 08/29/20 22:30 Nasal Nares MRSA Culture - Final NO METHICILLIN RESISTANT STAPH AUREUS... Complete 08/29/20 22:30 Blood Blood Culture - Preliminary NO GROWTH AFTER 48 HOURS Resulted Geoff Howard MD Sep 01, 2020 18:39
--- NOTE | 2020-09-01 19:15 | NUR ---
NURSE HAND-OFF: Important Events on Shift:Plans for Hospice Eval with [facility] Patient Status: Stable Diet: NPO Pending Orders: none Pending Results/Labs:none Pending MD notification:none Latest Vital Signs: Temperature 98.7 , Pulse 106 , B/P 143 /76 , Respiratory Rate 28 , O2 SAT 100 , Non-Rebreather, O2 Flow Rate 15.0 . Vital Sign Comment: none Latest Day Fall Score: 50 Fall Risk: High Risk Safety Measures: Call light Within Reach, Bed Alarm Zone 2, Side Rails Side Rails x3, Bed position Low and Locked. Fall Precautions: Yellow Socks Door Sign Patient Fall Education Report given to Eduardo SAHNI.
--- NOTE | 2020-09-01 19:30 | NUR ---
NURSE NOTES: Patient in bed, on non rebreather mask at 15LPM O2, on NPO. IV access on right arm g.18 running NS @ 125ml/hr. Call light in reach. Bed in lowest, lock engaged and alarm on. Will continue to monitor.
[2020-09-01 20:00] VITALS: BP 126/67
[2020-09-02] VITALS: BP 137/68
[2020-09-02] MEDS: NovoLOG Insulin Flexpen SUBQ SCH ×3 (02:08→09:00)
[2020-09-02 04:00] VITALS: BP 82/45
--- NOTE | 2020-09-02 07:01 | General Progress Note ---
Subjective ROS Limited/Unobtainable: Yes Allergies: Coded Allergies: No Known Allergies (Unverified , 08/29/20) Subjective events noted glucose values improved Item Value Date Time Bedside Blood Glucose 150 mg/dl H 09/02/20 0600 Bedside Blood Glucose 169 mg/dl H 09/02/20 0208 Bedside Blood Glucose 159 mg/dl H 09/01/20 2100 Bedside Blood Glucose 191 mg/dl H 09/01/20 1725 Bedside Blood Glucose 194 mg/dl H 09/01/20 1318 Bedside Blood Glucose 241 mg/dl H 09/01/20 1023 Bedside Blood Glucose 227 mg/dl H 09/01/20 0615 Objective Last 24 Hour Vital Signs Date Time Temp Pulse Resp B/P (MAP) Pulse Ox O2 Delivery O2 Flow Rate FiO2 09/02/20 04:00 96.8 73 28 82/45 (57) 95 09/02/20 00:00 97.0 113 26 137/68 (91) 96 09/01/20 21:00 Non-Rebreather 15.0 09/01/20 20:00 97.2 102 32 126/67 (86) 100 09/01/20 16:00 98.7 106 28 143/76 (98) 100 09/01/20 12:00 98.8 107 28 130/68 (88) 96 09/01/20 09:00 Non-Rebreather 15.0 09/01/20 08:00 98.1 105 28 95/52 (66) 99 Intake and Output 09/01/20 09/02/20 19:00 07:00 Output Total 300 ml 100 ml Balance -300 ml -100 ml Output Urine Total 300 ml 100 ml Laboratory Tests 09/01/20 13:14: POC Whole Blood Glucose 194H 09/01/20 17:22: POC Whole Blood Glucose 191H Height (Feet): 5 Height (Inches): 6.00 Weight (Pounds): 107 Objective Current Medications Medications (Trade) Dose Ordered Sig/Tim Route PRN Reason Start Time Stop Time Status Last Admin Dose Admin Acetaminophen (Tylenol) 325 mg Q6H PRN ORAL MILD/TEMP 08/30/20 05:30 09/29/20 05:29 Acetaminophen (Tylenol) 650 mg Q4H PRN RECTAL Temp >100.5 08/31/20 13:00 09/30/20 12:59 08/31/20 13:12 Acetaminophen/ Hydrocodone Bitart (Hickman 5/325) 1 tab Q4H PRN ORAL FOR PAIN 08/30/20 05:15 09/06/20 05:14 Barium Sulfate (Varibar Honey) 250 ml NOW PRN RAD 08/30/20 14:15 09/02/20 14:14 Barium Sulfate (Varibar Dasher) 240 ml NOW PRN RAD 08/30/20 14:15 09/02/20 14:14 Barium Sulfate (Varibar Pudding) 230 ml NOW PRN RAD 08/30/20 14:15 09/02/20 14:14 Barium Sulfate (Varibar Thin Liquid powder) 148 gm NOW PRN RAD 08/30/20 14:15 09/02/20 14:14 Clonidine HCl (Catapres Tab) 0.1 mg Q6H PRN ORAL For High Blood Pressure 08/30/20 06:00 11/28/20 05:59 Dexamethasone Sodium Phosphate (Decadron 4mg/ml vial) 6 mg Q24H IVP 08/30/20 21:00 09/07/20 21:01 09/01/20 20:19 Dextrose (Dextrose 50%) 25 ml Q30M PRN IV Hypoglycemia 08/31/20 07:00 11/29/20 06:59 Dextrose (Dextrose 50%) 50 ml Q30M PRN IV Hypoglycemia 08/31/20 07:00 11/29/20 06:59 Diphenhydramine HCl (Benadryl) 25 mg Q4H PRN ORAL Itching 08/30/20 05:15 09/29/20 05:14 Docusate Sodium (Colace) 100 mg THREE TIMES A DAY ORAL 08/30/20 09:00 09/29/20 08:59 08/31/20 08:57 Enoxaparin Sodium (Lovenox) 40 mg DAILY@1800 SUBQ 08/30/20 18:00 11/28/20 17:59 08/30/20 17:16 Famotidine (Pepcid) 20 mg DAILY ORAL 08/30/20 09:00 11/28/20 08:59 08/31/20 08:57 Insulin Aspart (NovoLOG) EVERY 4 HOURS SUBQ 08/31/20 07:00 11/28/20 20:59 09/02/20 05:31 Insulin Detemir (Levemir) 20 units BID SUBQ 08/31/20 09:00 11/29/20 08:59 09/01/20 17:25 Lorazepam (Ativan 2mg/ml 1ml) 0.5 mg Q4H PRN IV AGITATION 08/30/20 17:00 09/06/20 16:59 08/31/20 14:14 Lorazepam (Ativan) 0.5 mg THREE TIMES A DAY PRN ORAL Agitation 08/30/20 09:00 09/06/20 08:59 Ondansetron HCl (Zofran) 4 mg Q6H PRN ORAL Nausea & Vomiting 08/30/20 05:15 09/29/20 05:14 Sodium Chloride 1,000 ml @ 125 mls/hr Q8H IV 08/30/20 14:00 09/29/20 13:59 09/02/20 02:01 Assessment/Plan Problem List: (1) Diabetes mellitus out of control ICD Codes: E11.65 - Type 2 diabetes mellitus with hyperglycemia SNOMED: 67955539, 402475999 (2) ARF (acute renal failure) ICD Codes: N17.9 - Acute kidney failure, unspecified SNOMED: 29197259 Qualifiers: Qualified Codes: N17.9 - Acute kidney failure, unspecified (3) ACS (acute coronary syndrome) ICD Codes: I24.9 - Acute ischemic heart disease, unspecified SNOMED: 250321318 (4) Sepsis ICD Codes: A41.9 - Sepsis, unspecified organism SNOMED: 83870772, 577200337 Qualifiers: Qualified Codes: A41.9 - Sepsis, unspecified organism; R65.20 - Severe sepsis without septic shock; J96.01 - Acute respiratory failure with hypoxia (5) Respiratory failure with hypoxia ICD Codes: J96.91 - Respiratory failure, unspecified with hypoxia SNOMED: 61803715901723173 Qualifiers: Qualified Codes: J96.01 - Acute respiratory failure with hypoxia (6) Acute metabolic encephalopathy ICD Codes: G93.41 - Metabolic encephalopathy SNOMED: 87355894, 268444192 (7) Pneumonia due to COVID-19 virus ICD Codes: U07.1 - COVID-19; J12.89 - Other viral pneumonia SNOMED: 444263245226381865 Status: stable Assessment/Plan: continue Levemir 20 units bid continue Novolog sliding scale every 4 hours Rashid Tompkins MD Sep 02, 2020 07:01
--- NOTE | 2020-09-02 07:49 | NUR ---
NURSE NOTES: Received report from KAITLYN Galan. Patient is awake in bed, eyes open, alert and oriented x 0, nonverbal. Patient on droplet and contact isolation precautions for COVID. Previous shift endorsed that patient is off bilateral soft wrist restraints. Patient on non rebreather mask at 15 L/min, during rounds patient was satting 90-91%, Peripheral IV line right AC 18 g, asymptomatic, patent, running NS at 125 ml/h. Bed is locked and placed in lowest position with bed alarm on. call light is within reach. Will continue to monitor
--- NOTE | 2020-09-02 08:01 | NUR ---
HAND-OFF: Report given to KAITLYN Granados.
--- NOTE | 2020-09-02 08:15 | NUR ---
NURSE NOTES: Patient was seen during rounds, patients VS was still registering on VS machine. After 20 minutes LAY UP OPERATOR went to patients room and made nurse aware that VS machine wasnt registering. RN came and assesed patient. NO presence of rise and fall of chest, no pulse on carotid, radial and brachial. RN made charge nurse aware and as well Yamil Duarte (ANANYA) who made DR. Wilson aware, both PA and charge nurse went to patients room to confirm . RN called [facility] per protocol. RN also spoke to son Roge Covarrubias and was made aware that [facility] will be picking up patients body. Will call back when scheduled has been confirmed.
[2020-09-02] MEDS: Levemir Flexpen SUBQ SCH (09:00)
[2020-09-02] MEDS: Docusate 100mg cap ORAL SCH (09:00)
--- NOTE | 2020-09-04 11:31 | Discharge Summary ---
Discharge Summary Discharge Summary _ DATE OF ADMISSION: 08/30/2020 DATE OF DISCHARGE: 09/02/2020 BRIEF SUMMARY: Patient is an unfortunate 85-year-old male with history of CVA and dementia. He is DNR and was residing in a long term. He was discharged from an outside hospital recently with diagnosis of COVID-19 pneumonia. He tested positive on 08/21/2020. He worsened after long term and he was hypoxic. He was transferred to [facility]. Upon evaluation at ED, patient presented with sepsis secondary to Covid pneumonia and respiratory failure. He also showed evidence of multiorgan failure with acute renal failure, respiratory failure and ACS. His prognosis was very poor. He had a POLST that showed DNR/DNI. His chest x-ray showed bilateral infiltrates. He was placed on nonrebreather mask. He was then admitted for further management. He was continued on isolation. Patient was placed on n.p.o. He was started empirically on ceftriaxone. He was started on dexamethasone. He was given Lovenox for DVT prophylaxis. Patient had hyperglycemia. Glucose was closely monitored patient. He was placed on high-dose NovoLog sliding scale. He was given Levemir. He was given IV hydration. Infectious disease specialist was consulted. Leukocytosis could be secondary to steroid use. He was continued on Decadron. Ceftriaxone was discontinued. He was given a dose of ivermectin. Patient had irritated skin on the bilateral superior ear, likely due to nasal cannula tubing. He was given local wound care. Patient continued to be tachycardic. He continued to be on nonrebreather mask. Patient had poor prognosis and eventually . FINAL DIAGNOSES: Leukocytosis with recent Covid pneumonia UTI Acute renal failure/insufficiency Diabetes mellitus [id number]-[id number]-[id number] Lactic acidemia Elevated ferritin Troponin leak Elevated D-dimer Dysphagia with aspiration Respiratory failure with hypoxia Sepsis Acute metabolic encephalopathy Irritation on bilateral superior ear, likely due to nasal cannula tubing DNR/DNI DISPOSITION: Patient . I have been assigned to complete a discharge summary on this account, I was not involved with the patient's management.--CASSY De Los Santos Jacqueline Robles NP Sep 04, 2020 11:31
--- NOTE | 2020-09-04 12:23 | NUR ---
CASE MANAGEMENT: Faxed CM review and clinical info (face sheet /DC Summary/ H&P/ ER MD notes/progress notes/ CXR) to [facility] @ [phone].
== END 2020-09-02 08:20 | disposition expired | DRG 871 ==
LOC: EDBD 22:23 → EMR 22:43 → 4E 08-30 01:13 → EDBEDREQ 08-30 01:19
DX: A41.89 Other specified sepsis (principal); U07.1 COVID-19; J12.89 Other viral pneumonia; G93.41 Metabolic encephalopathy; J96.91 Respiratory failure, unspecified with hypoxia; N39.0 Urinary tract infection, site not specified; N17.9 Acute kidney failure, unspecified; I24.9 Acute ischemic heart disease, unspecified; Z51.5 Encounter for palliative care; Z66 Do not resuscitate; E11.65 Type 2 diabetes mellitus with hyperglycemia; R13.10 Dysphagia, unspecified; F03.90 Unspecified dementia, unspecified severity, without behavioral disturbance, psychotic disturbance, mood disturbance, and anxiety; N40.0 Benign prostatic hyperplasia without lower urinary tract symptoms; E78.5 Hyperlipidemia, unspecified; J44.9 Chronic obstructive pulmonary disease, unspecified
CPT/HCPCS: 36415; 71045; 80048; 80053; 81003; 82550; 82553; 82728; 82962; 83605; 83615; 83690; 83880; 84439; 84443; 84484; 85007; 85025; 85379; 85610; 85730; 86140; 87040; 87081; 87086; 93005; 96365; 96367; 96375; 99291; J1815; J7030; S5561